=== PATIENT | female | born 1990 | race Caucasian/White ===

== ENCOUNTER 2016-10-19 08:33 | Emergency (ER) | payer OTHER ==
[~2016-10-19] VITALS: Ht 170.2 cm; Wt 66.4 kg
[~2016-10-19 08:33] MED LIST: MTR600X PO; PRENTAB26 PO
[2016-10-19 08:39] VITALS: TEMP 36.8; Ht 170.2 cm; Wt 66.4 kg
[2016-10-19] MEDS ORDERED: SODIUM CHLORIDE 0.9% 1000ML 1,000 ML IV STA (09:45)
[2016-10-19] MEDS ORDERED: MoRPHine SULFATE 4 MG/ML 1 ML CARP\\VIAL IV STA ×2 (09:45→10:31)
[2016-10-19] MEDS ORDERED: ONDANSETRON INJ 2 MG/ML 2 ML VIAL IV STA ×2 (09:45→10:31)
[2016-10-19 09:53] LABS: BASO % 0.1 %; BASO ABS # 0.01 K/uL (0-0.2); COMPLETE YES; EOS % 0.2 %; HEMATOCRIT 39.6 % (37-47); IG% 0.2 %; LYMPH % 12.7 %; LYMPH ABS # 1.11 K/uL (1.2-3.4); MEAN CELL VOLUME 88.4 fL (80-100); MEAN CORPUSCULAR HEMOGLOBIN 30.4 pg (25-34); MEAN CORPUSCULAR HGB CONC 34.3 g/dl (32-36); MONO % 2.1 %; NEUT % 84.7 %; PLATELET COUNT 191 K/uL (130-400); RED BLOOD COUNT 4.48 M/uL (4.2-5.4); WHITE BLOOD COUNT 8.76 K/uL (4.8-10.8)
[2016-10-19 10:09] LABS: BUN/CREATININE RATIO 29.1 (10-20); CALCIUM 9.4 mg/dl (8.5-10.1); CREATININE 0.75 mg/dl (0.60-1.20); POTASSIUM 3.4 mmol/L (3.5-5.1)
[2016-10-19 10:29] LABS: URINE APPEARANCE CLOUDY (CLEAR); URINE BILIRUBIN NEG (NEG); URINE COLOR YELLOW; URINE EPITHELIAL CELL AUTO >30 /lpf (0-5); URINE NITRITE NEG (NEG); URINE SPECIFIC GRAVITY 1.033 (1.000-1.030); UROBILINOGEN NEG (NEG)
[2016-10-19 10:34] LABS: MANUAL MICROSCOPIC REQUIRED? NO; REVIEW REQ? YES
[2016-10-19] MEDS ORDERED: HYDROmorphone INJ 1 MG/ML SYR IV STA (11:13)
--- NOTE | 2016-10-19 11:26 | DIAGNOSTIC IMAGING REPORT ---
BILIARY ULTRASOUND CLINICAL HISTORY: Right upper quadrant abdominal pain COMPARISON STUDY: 11/11/2015 FINDINGS: The pancreas appears sonographically normal. The liver appears sonographically normal. The gallbladder appears sonographically normal. There is no ductal dilatation. The common bile duct measures 3 mm. There is no right-sided hydronephrosis. IMPRESSION: Normal study Electronically signed by: Lukasz Kaplan M.D. 10/19/2016 11:25 AM Dictated Date/Time: 10/19/2016 11:21 AM
[2016-10-19] MEDS ORDERED: OPTIRAY 320 IV PRN (12:15)
--- NOTE | 2016-10-19 12:30 | DIAGNOSTIC IMAGING REPORT ---
CT ABD/PELVIS IV CONTRAST ONLY CLINICAL HISTORY: Nausea, vomiting, right upper quadrant abdominal pain COMPARISON STUDY: 08/06/2013 TECHNIQUE: Following the IV administration of 118 mL of Optiray-320, CT scan of the abdomen and pelvis was performed from the lung bases to the proximal femurs. Images are reviewed in the axial, sagittal, and coronal planes. IV contrast was administered without complication. CT DOSE: 326.11 mGy.cm FINDINGS: Lower chest: The heart is normal in size and configuration, without pericardial effusion. The lung bases and pleural spaces are clear. Liver: The contrast-enhanced liver is normal in size, contour, and attenuation. There is no intrahepatic biliary ductal dilatation. The hepatic veins and portal veins are patent. Gallbladder: Unremarkable. Spleen: Normal in size and attenuation. Pancreas: Unremarkable. Adrenal glands: Unremarkable. Kidneys: There is symmetric renal cortical enhancement. The kidneys are normal in size without hydronephrosis. Bowel: There are no transition zones indicate bowel obstruction. There is no acute diverticulitis. There is no evidence of acute appendicitis. Evaluation the colon is limited due to lack of distention. Peritoneum: There is no free air. There is minimal free pelvic fluid likely physiologic. Vasculature: The abdominal aorta is normal in course and caliber. Adenopathy: None. Pelvic viscera: The bladder, and pelvic viscera are unremarkable. Skeletal structures: No destructive osseous lesions are seen. IMPRESSION: 1. No acute findings 2. No evidence of bowel obstruction. No evidence of free air 3. No evidence of acute diverticulitis. No evidence of acute appendicitis. 4. Minimal free pelvic fluid likely physiologic Electronically signed by: Lukasz Kaplan M.D. 10/19/2016 12:28 PM Dictated Date/Time: 10/19/2016 12:24 PM
[2016-10-19] MEDS ORDERED: METOCLOPRAMIDE HCL INJ 5 MG/ML 2 ML VIAL IV STA (13:01)
[2016-10-19] MEDS ORDERED: HYDROmorphone INJ 0.5 MG/0.5 ML SYR IV STA (13:10)
[2016-10-19] MEDS ORDERED: PROM1SUP19 PR (14:39)
[2016-10-19 14:58] VITALS: BP 113/56; PULSE 69; O2SAT 99
--- NOTE | 2016-10-20 20:05 | EMERGENCY ROOM VISIT NOTE ---
ED Visit Note First contact with patient: 09:20 Chief Complaint: Nausea, vomiting and abdominal pain. History of Present Illness: Ms. Perkins is a 26 year-old white female who ambulates into the ED complaining of acute onset of with nausea and vomiting right upper quadrant abdominal pain. Historically patient reports history of severe nausea and vomiting during . Additionally she reports that she has had these similar symptoms during and outside of . She reports assessed multiple times but no cause has been identified. Patient reports a acute onset of severe nausea and vomiting that started approximately 14 hours ago and has been constant since its onset. Approximately 2 hours after the onset of her nausea and vomiting she developed right upper quadrant pain and since its onset it has been constant but has waxed and waned in intensity. She describes her vomitus as bilious and has not seen any blood in her vomit or coffee-ground like emesis. She has used some leftover Zofran from her without relief of her nausea or vomiting. Her nausea and vomiting when worsen if she attempted a eat or drink; she does report she attempted to swallow medicines but was unsuccessful and had an episode of vomiting. She describes her right upper quadrant pain as a stabbing sensation. She rates her discomfort 8/10. Her pain is nonradiating. Her pain worsens with vomiting. She has not identified any alleviating factors related to the discomfort. Previously noted she had attempted to take [id number] medications but was unsuccessful because of her nausea vomiting. Associated with her symptoms she reports she has been having chills but no mauro fevers. Patient denies sweats, skin eruptions, skin color changes, upper respiratory tract symptoms, shortness of breath, chest pain, diarrhea, constipation, rectal bleeding, black/tarry stools, urinary symptoms, hematuria, vaginal bleeding, vaginal discharge, back/flank pain. Review of Systems: As noted above in history of present illness. All body systems were reviewed and found to be negative as noted above. Past Medical History: Unspecified neck surgery. Current Medications: Patient denies. Allergies to Medications: Patient denies. Social History: Patient is not currently employed; she feels safe in her home environment; she denies tobacco and alcohol use. Physical Examination: Vital Signs: Date Time Temp Pulse Resp B/P Pulse Ox O2 Delivery O2 Flow Rate FiO2 10/19/16 14:58 69 14 113/56 99 10/19/16 13:35 55 13 138/75 96 Room Air 10/19/16 13:10 47 10/19/16 12:34 64 15 128/59 98 Room Air 10/19/16 11:28 57 12 137/77 98 Room Air 10/19/16 11:14 59 10/19/16 10:44 63 20 127/82 100 Room Air 10/19/16 08:39 36.8 68 20 156/78 95 Room Air GENERAL: 26-year-old female in moderate distress due to symptoms, nontoxic- appearing, afebrile and hemodynamically stable. NEUROLOGICAL: Awake, alert and oriented to person, place and time. Answering questions appropriately and following commands. Normal gait. Good hand eye coordination. SKIN: Warm, dry and pink. No soft tissue eruptions or trauma noted. HEENT: Atraumatic and normocephalic. PERRLA. Sclera white and conjunctiva pink. Oral cavity moist and pink. Pharynx is nonerythematous or edematous. Speech normal. No lymphadenopathy. Trachea midline. No jugular venous distention. BACK: No tenderness over the bony spine. No CVA tenderness. THORAX: Lungs sounds are clear to auscultation and equal bilaterally with symmetrical chest wall. No wheezing, rales or rhonchi. No crepitus, tenderness , subcutaneous air or deformities noted. HEART: Regular rate and rhythm. No gallops, rubs or murmurs are appreciated. ABDOMEN: Flat and soft with ejll-he-bytseurm tenderness in the right upper quadrant. Positive bowel sounds in all quadrants. No guarding, rigidity or organomegaly. EXTREMITIES: Moves all extremities well on command and with purpose. All distal neurovascular statuses are intact and equal bilaterally. ED Course: Patient is assessed as noted above. Laboratory Testing: Test 10/19/16 08:50 10/19/16 08:55 Range/Units White Blood Count 8.76 4.8-10.8 K/uL Red Blood Count 4.48 4.2-5.4 M/uL Hemoglobin 13.6 12.0-16.0 g/dL Hematocrit 39.6 37-47 % Mean Corpuscular Volume 88.4 80-100 fL Mean Corpuscular Hemoglobin 30.4 25-34 pg Mean Corpuscular Hemoglobin Concent 34.3 32-36 g/dl Platelet Count 191 130-400 K/uL Mean Platelet Volume 10.0 7.4-10.4 fL Neutrophils (%) (Auto) 84.7 % Lymphocytes (%) (Auto) 12.7 % Monocytes (%) (Auto) 2.1 % Eosinophils (%) (Auto) 0.2 % Basophils (%) (Auto) 0.1 % Neutrophils # (Auto) 7.42 1.4-6.5 K/uL Lymphocytes # (Auto) 1.11 1.2-3.4 K/uL Monocytes # (Auto) 0.18 0.11-0.59 K/uL Eosinophils # (Auto) 0.02 0-0.5 K/uL Basophils # (Auto) 0.01 0-0.2 K/uL RDW Standard Deviation 43.3 36.4-46.3 fL RDW Coefficient of Variation 13.3 11.5-14.5 % Immature Granulocyte % (Auto) 0.2 % Immature Granulocyte # (Auto) 0.02 0.00-0.02 K/uL Sodium Level 141 136-145 mmol/L Potassium Level 3.4 3.5-5.1 mmol/L Chloride Level 105 98-107 mmol/L Carbon Dioxide Level 21 21-32 mmol/L Anion Gap 15.0 3-11 mmol/L Blood Urea Nitrogen 22 7-18 mg/dl Creatinine 0.75 0.60-1.20 mg/dl Est Creatinine Clear Calc Drug Dose 112.5 ml/min Estimated GFR () 129.3 Estimated GFR (Non- 111.6 BUN/Creatinine Ratio 29.1 10-20 Random Glucose 83 70-99 mg/dl Calcium Level 9.4 8.5-10.1 mg/dl Total Bilirubin 0.5 0.2-1 mg/dl Direct Bilirubin 0.2 0-0.2 mg/dl Aspartate Amino Transf (AST/SGOT) 23 15-37 U/L Alanine Aminotransferase (ALT/SGPT) 22 12-78 U/L Alkaline Phosphatase 66 45-117 U/L Total Protein 8.3 6.4-8.2 gm/dl Albumin 4.7 3.4-5.0 gm/dl Lipase 76 73-393 U/L Chemistry Specimen Hemolysis Urine Color YELLOW Urine Appearance CLOUDY CLEAR Urine pH 5.0 4.5-7.5 Urine Specific [place] 1.033 1.000-1.030 Urine Protein 1+ NEG Urine Glucose (UA) NEG NEG Urine Ketones 2+ NEG Urine Occult Blood NEG NEG Urine Nitrite NEG NEG Urine Bilirubin NEG NEG Urine Urobilinogen NEG NEG Urine Leukocyte Esterase TRACE NEG Urine WBC (Auto) 5-10 0-5 /hpf Urine RBC (Auto) 0-4 0-4 /hpf Urine Hyaline Casts (Auto) 0-5 /lpf Urine Epithelial Cells (Auto) >30 0-5 /lpf Urine Bacteria (Auto) 2+ NEG Urine Renal Epithelial Cells 0-5 /lpf Urine Pathogenic Casts 0 /lpf Gallbladder Ultrasound: Was reviewed by myself and read by the radiologist and shows a normal-appearing pancreas, normal-appearing liver, normal appearing gallbladder with no ductal dilatation or gallbladder wall thickening and normal- appearing with no hydronephrosis. IV Contrast Abdominal/Pelvic CT: Was reviewed by myself and read by the radiologist showing no acute findings, no evidence of bowel obstruction, free air, acute diverticulitis, acute appendicitis and minimal free pelvic fluid. Patient was hydrated with 2 L of normal saline she received a total of 8 mg of morphine IV and 1.5 mg of the Dilaudid IV for pain and 8 mg of Zofran IV and 10 mg of Reglan IV for nausea/vomiting. Patient was reassessed multiple times during her stay in the emergency department. Patient's case was reviewed with Dr. Matos; we agreed on diagnostic approach, treatment, disposition and plan. I did trial the patient on Gatorade and saltines; she did tolerate this but then just prior to discharge she became more nauseated and started vomiting. I reviewed the case with case management and she didn't meet qualifications for observation stay; I did talk to her about this but she wanted to review this with her . After a long period of time she was able to contact her at home and she elected to go and treat her symptoms there. Patient was educated about dejahight's findings and instructed on her treatment plan; she verbalizes understanding and agreement with this plan. Clinical Impression: Nausea and vomiting. Right upper quadrant abdominal pain. Decision-Making: Initially my differential diagnosis I considered gastritis, pancreatitis, hepatitis, , pyelonephritis, kidney stone, bowel obstruction and other causes. Disposition: Patient discharged home in stable condition accompanied by her mother; prior to departure she was reassessed and rated her abdominal discomfort 4/10 and reported currently her nausea was under control and she had not vomited for the last 30 minutes. Plan: Patient was prescribed Phenergan suppositories and instructed on their use. Patient was encouraged to avoid stomach irritants and a bland diet for 48 hours. Patient was encouraged to use 650 mg of acetaminophen every 6 hours for pain. Patient was encouraged to follow-up with her primary care provider for recheck and possible referral to gastroenterology. Patient was encouraged return the ED for worsening/uncontrolled vomiting, bloody vomitus, uncontrolled pain, fevers or any new/concerning symptoms.
== END 2016-10-19 15:00 | disposition home or self-care (01) ==
LOC: C.EDB 08:37
DX: R11.2 Nausea with vomiting, unspecified (principal); R10.11 Right upper quadrant pain; Z98.890 Other specified postprocedural states

== ENCOUNTER 2016-10-21 08:02 | Emergency (ER) | payer OTHER ==
[~2016-10-21] VITALS: Ht 170.2 cm; Wt 68.9 kg
[~2016-10-21 08:02] MED LIST changes: -MTR600X PO; -PRENTAB26 PO; +PROM1SUP19 PR
[2016-10-21 08:05] VITALS: TEMP 36.2; Ht 170.2 cm; Wt 68.9 kg
[2016-10-21] MEDS ORDERED: SODIUM CHLORIDE 0.9% 1000ML 1,000 ML IV STA (08:22)
[2016-10-21] MEDS ORDERED: MoRPHine SULFATE 4 MG/ML 1 ML CARP\\VIAL IV STA (08:22)
[2016-10-21] MEDS ORDERED: METOCLOPRAMIDE HCL INJ 5 MG/ML 2 ML VIAL IV STA (08:22)
[2016-10-21 08:35] LABS: BASO % 0.2 %; BASO ABS # 0.02 K/uL (0-0.2); COMPLETE YES; EOS % 0.1 %; IG% 0.2 %; LYMPH % 14.4 %; LYMPH ABS # 1.24 K/uL (1.2-3.4); MEAN CELL VOLUME 87.6 fL (80-100); MEAN CORPUSCULAR HEMOGLOBIN 30.1 pg (25-34); MEAN CORPUSCULAR HGB CONC 34.4 g/dl (32-36); MEAN PLATELET VOLUME 10.1 fL (7.4-10.4); MONO % 3.4 %; NEUT % 81.7 %; PLATELET COUNT 190 K/uL (130-400); RED BLOOD COUNT 4.68 M/uL (4.2-5.4)
[2016-10-21 08:52] LABS: ALB/GLOB RATIO 1.3 (0.9-2); BUN/CREATININE RATIO 9.8 (10-20); CREATININE 1.2 mg/dl (0.60-1.20); POTASSIUM 3.1 mmol/L (3.5-5.1)
[2016-10-21] MEDS ORDERED: PROMETHAZINE HCL INJ 25 MG in SODIUM CHLORIDE 0.9% 50ML 50 ML IV STA (09:04)
[2016-10-21] MEDS ORDERED: MoRPHine SULFATE 2 MG/ML CARP IV STA (09:04)
[2016-10-21] MEDS ORDERED: PROMETHAZINE HCL INJ 25 MG/ML 1 ML VIAL ONE (09:12)
[2016-10-21 09:39] LABS: PREG INTERNAL NEGATIVE QC NEG CLEAR BACKGROUND; PREG INTERNAL POSITIVE QC POS CONTROL LINE
[2016-10-21 09:44] LABS: URINE APPEARANCE CLEAR (CLEAR); URINE BILIRUBIN NEG (NEG); URINE COLOR YELLOW; URINE NITRITE NEG (NEG); URINE PH 7.5 (4.5-7.5); URINE SPECIFIC GRAVITY 1.024 (1.000-1.030); UROBILINOGEN NEG (NEG)
[2016-10-21] MEDS ORDERED: KETOROLAC TROMETHAMINE 30 MG/ML VIAL IV STA (09:51)
[2016-10-21 09:58] LABS: MANUAL MICROSCOPIC REQUIRED? YES; REVIEW REQ? NO
[2016-10-21 10:09] LABS: URINE RBC 0-4 /hpf (0-4)
[2016-10-21 10:10] LABS: URINE BACTERIA NEG (NEG); URINE MUCUS PRESENT (NONE PRSENT)
[2016-10-21] MEDS ORDERED: DICYCLOMINE HCL 10 MG CAP PO ONE (10:45)
[2016-10-21] MEDS ORDERED: LORAZEPAM 2 MG/ML 1 ML VIAL IV STA (12:02)
[2016-10-21 12:25] VITALS: BP 131/79; PULSE 68; O2SAT 99
--- NOTE | 2016-10-23 18:54 | EMERGENCY ROOM VISIT NOTE ---
History First contact with patient: 08:13 Chief Complaint: ABDOMINAL PAIN Stated Complaint: N,V, SEVERE ABD. PAIN History of Present Illness The patient is a 26 year old white female who presents to the Emergency Room with complaints of severe upper quadrant abdominal pain that developed around 1 AM today. She has had persisting nausea and vomiting. She presents with bile emesis in a bag. She was just seen here about 36 hours ago for identical symptoms. She had CT scan imaging of her abdomen and pelvis and ultrasound imaging of her gallbladder that were both normal. Morphine, Dilaudid, Reglan, and Zofran and her symptoms subsided. She states Sunday she had a good day with no significant pain, nausea, or vomiting. Symptoms recurred today. She states she only ate cheese puffs yesterday. She currently complains of being thirsty but unable to retain any fluid. No diarrhea. No other cold symptoms. She has a long-standing history of abdominal pain, nausea, and vomiting complaints and has been seen here numerous times over the past several years. She states she had an EGD several years ago that was reportedly normal. She states she has not had an evaluation of her gallbladder emptying that she is aware of. No abdominal trauma. Her mother accompanies her today. Patient also states that the only thing that really helps is for her to rock back and forth and to go to sleep. She states often when she awakes, the pain has gone. She states pain medications only temporary relief her discomfort. She has used a multitude of different pain medications and Ativan in the past, with no rhyme or reason as to what works for each particular episode. Review of Systems REVIEW OF SYSTEM: HEENT: No dizziness, visual problems, hearing loss, or tinnitus. There is no difficulty swallowing and no oral lesions are present. LYMPH: No adenopathy. PULMONARY: No cough, shortness of breath, sputum production or hemoptysis. CARDIOVASCULAR: No chest pain, palpitations, shortness of breath or peripheral edema. GASTROINTESTINAL: No diarrhea, or constipation. Frequent nausea, vomiting, and abdominal pain. GENITOURINARY: No dysuria, frequency, urgency or nocturia. NEUROLOGIC: No weakness, muscle tenderness, epilepsy or history of neurological problems. MUSCULOSKELETAL: No history of joint tenderness/swelling. No history of arthritis or arthralgias. SKIN: No rashes or lesions. PSYCHIATRIC: No history of depression or mental illness. ENDOCRINE: No history of diabetes, thyroid disorders, or abnormal hair growth. Past Medical/Surgical History Medical Problems: (1) Abdominal pain affecting (2) Chronic abdominal pain (3) Depression (4) spinal surgery (5) Spinal surgery (6) Vaginal bleeding (7) Vaginal delivery Family History FH: cancer Hypertension Kidney disease or stones Social History Smoking Status: Never Smoker Smokeless Tobacco Use: No Alcohol Use: none Drug Use: none Marital Status: Housing Status: lives with family Occupation Status: unemployed Current/Historical Medications Scheduled PRN Promethazine (Phenergan Suppository), 25 MG AR Q6 PRN for Nausea or Vomiting Allergies Coded Allergies: No Known Allergies (Unverified , 10/21/16) Physical Exam Vital Signs Date Time Temp Pulse Resp B/P Pulse Ox O2 Delivery O2 Flow Rate FiO2 10/21/16 12:25 68 16 131/79 99 Room Air 10/21/16 10:10 70 16 132/86 100 Room Air 10/21/16 08:05 36.2 68 20 147/94 97 Room Air Physical Exam Gen.: Well-developed, well-nourished, young white female, in obvious discomfort. She is moaning and rolling around on the bed. Alert and oriented. Skin:Warm and dry with good turgor. No rashes or lesions. No ecchymosis or erythema. The patient is not diaphoretic. No abrasions. HEENT: Normocephalic atraumatic. Eyes PERRLA, EOMI. No conjunctiva or scleral injection. Nares patent bilaterally without turbinate enlargement. No significant drainage. No epistaxis. Oropharynx without erythema or exudate. Uvula midline, oral mucosa moist. No lesions present. Heart: Heart RRR. No MGR. Peripheral pulses are 2+. Lungs: Lungs are clear to auscultation. No crackles rhonchi or wheezing. Good air movement. The patient is able to take a deep breath. Abdomen: Abdomen was inspected, auscultated, and palpated. Bowel sounds present x 4. Soft, diffuse tenderness to palpation in the upper quadrants. She also has suprapubic discomfort today. No hepato-splenomegaly. No masses noted. No rebound. No pain over McBurney's point. No CVA tenderness. Musculoskeletal: Gross motor function of the upper and lower extremities is intact and unremarkable. Neurologic: Gross sensation is intact across the upper and lower extremities by soft touch. Medical Decision & Procedures Laboratory Results 10/21/16 08:20 Red Blood Count 4.68, Mean Corpuscular Volume 87.6, Mean Corpuscular Hemoglobin 30.1, Mean Corpuscular Hemoglobin Concent 34.4, Mean Platelet Volume 10.1, Neutrophils (%) (Auto) 81.7, Lymphocytes (%) (Auto) 14.4, Monocytes (%) (Auto) 3.4, Eosinophils (%) (Auto) 0.1, Basophils (%) (Auto) 0.2, Neutrophils # (Auto) 7.02, Lymphocytes # (Auto) 1.24, Monocytes # (Auto) 0.29, Eosinophils # (Auto) 0.01, Basophils # (Auto) 0.02 10/21/16 08:20 Test 10/21/16 08:20 10/21/16 09:25 White Blood Count 8.60 K/uL (4.8-10.8) Red Blood Count 4.68 M/uL (4.2-5.4) Hemoglobin 14.1 g/dL (12.0-16.0) Hematocrit 41.0 % (37-47) Mean Corpuscular Volume 87.6 fL (80-100) Mean Corpuscular Hemoglobin 30.1 pg (25-34) Mean Corpuscular Hemoglobin Concent 34.4 g/dl (32-36) Platelet Count 190 K/uL (130-400) Mean Platelet Volume 10.1 fL (7.4-10.4) Neutrophils (%) (Auto) 81.7 % Lymphocytes (%) (Auto) 14.4 % Monocytes (%) (Auto) 3.4 % Eosinophils (%) (Auto) 0.1 % Basophils (%) (Auto) 0.2 % Neutrophils # (Auto) 7.02 K/uL (1.4-6.5) Lymphocytes # (Auto) 1.24 K/uL (1.2-3.4) Monocytes # (Auto) 0.29 K/uL (0.11-0.59) Eosinophils # (Auto) 0.01 K/uL (0-0.5) Basophils # (Auto) 0.02 K/uL (0-0.2) RDW Standard Deviation 43.4 fL (36.4-46.3) RDW Coefficient of Variation 13.5 % (11.5-14.5) Immature Granulocyte % (Auto) 0.2 % Immature Granulocyte # (Auto) 0.02 K/uL (0.00-0.02) Anion Gap 11.0 mmol/L (3-11) Est Creatinine Clear Calc Drug Dose 70.3 ml/min Estimated GFR () 73.3 Estimated GFR (Non- 63.2 BUN/Creatinine Ratio 9.8 (10-20) Calcium Level 9.0 mg/dl (8.5-10.1) Total Bilirubin 0.5 mg/dl (0.2-1) Aspartate Amino Transf (AST/SGOT) 24 U/L (15-37) Alanine Aminotransferase (ALT/SGPT) 28 U/L (12-78) Alkaline Phosphatase 63 U/L (45-117) Total Protein 8.2 gm/dl (6.4-8.2) Albumin 4.7 gm/dl (3.4-5.0) Globulin 3.5 gm/dl (2.5-4.0) Albumin/Globulin Ratio 1.3 (0.9-2) Amylase Level 40 U/L (25-115) Lipase 116 U/L (73-393) Urine Color YELLOW Urine Appearance CLEAR (CLEAR) Urine pH 7.5 (4.5-7.5) Urine Specific [place] 1.024 (1.000-1.030) Urine Protein NEG (NEG) Urine Glucose (UA) NEG (NEG) Urine Ketones NEG (NEG) Urine Occult Blood NEG (NEG) Urine Nitrite NEG (NEG) Urine Bilirubin NEG (NEG) Urine Urobilinogen NEG (NEG) Urine Leukocyte Esterase TRACE (NEG) Urine WBC (Auto) /hpf (0-5) Urine RBC (Auto) /hpf (0-4) Urine Hyaline Casts (Auto) /lpf (0-5) Urine Epithelial Cells (Auto) /lpf (0-5) Urine Bacteria (Auto) (NEG) Urine RBC 0-4 /hpf (0-4) Urine WBC 1-5 /hpf (0-5) Urine Epithelial Cells >30 /lpf (0-5) Urine Bacteria NEG (NEG) Urine Mucus PRESENT (NONE PRSENT) Urine Test NEG (NEG) CBC, UA, amylase, lipase, and chem panel are all essentially unremarkable. Mildly low potassium at 3.1. Urine is negative. Medications Administered Medications (Trade) Dose Ordered Sig/Oli Route Start Time Stop Time Status Last Admin Dose Admin Sodium Chloride (Nss 1000ml) 1,000 ml @ 999 mls/hr Q1H1M STAT IV 10/21/16 08:22 10/21/16 09:22 DC 10/21/16 08:34 999 MLS/HR Metoclopramide HCl (Reglan Inj) 10 mg NOW STAT IV 10/21/16 08:22 10/21/16 08:24 DC 10/21/16 08:34 10 MG Morphine Sulfate (MoRPHine SULFATE INJ) 4 mg NOW STAT IV 10/21/16 08:22 10/21/16 08:24 DC 10/21/16 08:35 4 MG Morphine Sulfate 2 mg 2 mg NOW STAT IV 10/21/16 09:04 10/21/16 09:06 DC 10/21/16 09:20 2 MG Promethazine HCl/ Sodium Chloride (Phenergan Inj/ Nss 50ml) 51 ml @ 204 mls/hr NOW STAT IV 10/21/16 09:04 10/21/16 09:18 DC 10/21/16 09:20 204 MLS/HR Ketorolac Tromethamine (Toradol Inj) 30 mg NOW STAT IV 10/21/16 09:51 10/21/16 09:52 DC 10/21/16 10:09 30 MG Dicyclomine HCl (Bentyl Cap) 10 mg NOW ONCE PO 10/21/16 10:45 10/21/16 10:46 DC 10/21/16 11:06 10 MG Lorazepam (Ativan Inj) 0.5 mg NOW STAT IV 10/21/16 12:02 10/21/16 12:03 DC 10/21/16 12:11 0.5 MG Reglan 10 mg IV, 1 L normal sterile saline IV bolus, Morphine 4 mg IV, morphine 2 mg IV, Phenergan 25 mg IV, Toradol 31 g IV, Bentyl 10 mg by mouth, lorazepam 0.5 mg IV ED Course Patient was educated regarding today's findings. Conservative care measures were discussed. IV was established. Labs were obtained. Patient was given 1 L normal sterile saline IV bolus, morphine, Reglan, Zofran, Phenergan, and Ativan IV. She was given Bentyl 10 mg orally. The morphine temporarily improved her discomfort but then recurred within 20 minutes. Her nausea and vomiting resolved. I did give her 0.5mg of Ativan IV which allowed her to sleep. When she awoke, her pain was much improved. She has recently had numerous imaging studies which were all normal. She still has her gallbladder. I would like her to follow-up with [facility] gastroenterology to discuss further imaging including possible MRCP. Return to the ED for any acute changes. She has Phenergan suppositories at home and will use this for any continued nausea or vomiting. Maintain hydration. Because of her current medications, she should not breast feed for the next 24 hours. She can use simethicone to reduce any abdominal pressure or bloating. She may also use Benadryl 25 mg every 6 hours as needed for any inability to sleep. Medical Decision Possibility of appendicitis, acute cholecystitis, bowel obstruction, gastroenteritis, perforation, diverticulitis, , tubal , colitis, and pancreatitis were considered, among others Impression Primary Impression: Chronic abdominal pain Additional Impression: Vomiting Departure Information Referrals No Doctor, Assigned (PCP) Patient Instructions My [facility] Health Problem Qualifiers Additional Impression: Vomiting Vomiting type: bilious vomiting Nausea presence: with nausea Qualified Codes: R11.14 - Bilious vomiting
== END 2016-10-21 14:30 | disposition home or self-care (01) ==
LOC: C.EDB 08:02
DX: R10.10 Upper abdominal pain, unspecified (principal); R11.14 Bilious vomiting

== ENCOUNTER 2016-10-24 08:49 | Emergency (ER) | payer OTHER ==
[~2016-10-24] VITALS: Ht 170.2 cm; Wt 67.9 kg
[2016-10-24 08:52] VITALS: Ht 170.2 cm; Wt 67.9 kg
[2016-10-24] MEDS ORDERED: ONDANSETRON INJ 2 MG/ML 2 ML VIAL IV STA (08:57)
[2016-10-24] MEDS ORDERED: SODIUM CHLORIDE 0.9% 1000ML 1,000 ML IV SCH (09:00)
[2016-10-24] MEDS ORDERED: DICYCLOMINE HCL 10 MG/ML 2 ML AMP IM ONE (09:00)
--- NOTE | 2016-10-24 09:09 | EMERGENCY ROOM VISIT NOTE ---
History Report prepared by Tao: Yamel Ibrahim Under the Supervision of: Dr. Christiano Webber D.O. First contact with patient: 08:57 Chief Complaint: ABDOMINAL PAIN Stated Complaint: ABD PAIN Nursing Triage Summary: has abdominal pain nausea and vomiting. had appointment this morning at 0930 to see gastroenterology. I came here instead. was just at the er for same symptoms History of Present Illness The patient is a 26 year old female who presents to the Emergency Room with complaints of constant abdominal pain beginning yesterday. The patient states that she was recently seen in the ED 2 times and had an appointment to follow up with gastroenterology this morning but decided to come here. She complains of pain with breathing, nausea, and vomiting. She denies any history of STDs. The patient notes that she is on a gas pill and has been taking Benadryl to sleep. She states that she had an ultrasound the last time that she was here. Source of History: patient Onset: yesterday Position: abdomen Timing: constant Associated Symptoms: + nausea, + vomiting Note: Pt complains of pain with breathing. Review of Systems See above for pertinent positives & negatives. A total of 10 systems reviewed and were otherwise negative. Past Medical & Surgical Medical Problems: (1) Abdominal pain affecting (2) Chronic abdominal pain (3) Depression (4) spinal surgery (5) Spinal surgery (6) Vaginal bleeding (7) Vaginal delivery Family History FH: cancer Hypertension Kidney disease or stones Social History Smoking Status: Never Smoker Alcohol Use: none Drug Use: none Marital Status: Housing Status: lives with family Occupation Status: unemployed Current/Historical Medications Scheduled Dicyclomine Hcl (Bentyl), 1 TAB PO QID Doxycycline Hyclate (Doxycycline Hyclate), 1 TAB PO BID Metronidazole (Flagyl), 500 MG PO TID Scheduled PRN Promethazine (Phenergan Suppository), 25 MG NM Q6 PRN for Nausea or Vomiting Allergies Coded Allergies: No Known Allergies (Unverified , 10/24/16) Physical Exam Vital Signs Date Time Temp Pulse Resp B/P Pulse Ox O2 Delivery O2 Flow Rate FiO2 10/24/16 11:07 71 18 145/91 98 Room Air 10/24/16 08:52 37.6 90 18 149/92 98 Room Air Physical Exam GENERAL: Patient is sitting with her knees pulled up to her chest, in pain. HEENT: No acute trauma, normocephalic atraumatic, mucous membranes moist, no nasal congestion, no scleral icterus. NECK: No stridor, no adenopathy, no meningismus, trachea is midline. LUNGS: No dyspnea. Clear to auscultation and equal bilaterally. No wheeze, no rhonchi. HEART: Regular rate and rhythm. No murmurs, rubs, gallops appreciated. ABDOMEN: Diffuse abdominal tenderness, no hepatosplenomegaly, no guarding or rebound. BACK: No midline tenderness, no CVA tenderness EXTREMITIES: Normal motion all extremities, no cyanosis, no edema. NEUROLOGIC: Alert and oriented, no acute motor or sensory deficits, no focal weakness, cranial nerves grossly intact. SKIN: No rash, no jaundice, no diaphoresis. PELVIC: Normal external genitalia, fullness in the right adnexa, moderate pain on bimanual examination. Cultures were sent. Medical Decision & Procedures ER Provider Diagnostic Interpretation: US results and stated below per my review and radiologist interpretation: ULTRASOUND OF THE PELVIS FINDINGS: Uterus: The retroflexed uterus is normal in size and echotexture, measuring 6.4 x 3.7 x 4.9 cm. Endometrium: The endometrium is normal in appearance, and the endometrial stripe is normal in thickness measuring up to 0.3 cm. Ovaries: The ovaries are normal in size and morphology. The right ovary measures 4.5 x 2.0 x 3.1 cm and the left ovary measures 4.2 x 3.0 x 2.6 cm. Bilateral ovarian follicles are noted. Normal Doppler waveforms are shown within both ovaries. Pelvis: There is a small volume of free fluid in the cul-de-sac. No concerning adnexal lesion is seen. IMPRESSION: 1. No acute sonographic abnormality is identified in the pelvis. 2. There is a small volume of free fluid in the cul-de-sac, likely within physiologic limits. Electronically signed by: Benjamin Staples M.D. 10/24/2016 10:59 AM Dictated Date/Time: 10/24/2016 10:58 AM ULTRASOUND OF THE PELVIS FINDINGS: Uterus: The retroflexed uterus is normal in size and echotexture, measuring 6.4 x 3.7 x 4.9 cm. Endometrium: The endometrium is normal in appearance, and the endometrial stripe is normal in thickness measuring up to 0.3 cm. Ovaries: The ovaries are normal in size and morphology. The right ovary measures 4.5 x 2.0 x 3.1 cm and the left ovary measures 4.2 x 3.0 x 2.6 cm. Bilateral ovarian follicles are noted. Normal Doppler waveforms are shown within both ovaries. Pelvis: There is a small volume of free fluid in the cul-de-sac. No concerning adnexal lesion is seen. IMPRESSION: 1. No acute sonographic abnormality is identified in the pelvis. 2. There is a small volume of free fluid in the cul-de-sac, likely within physiologic limits. Electronically signed by: Benjamin Staples M.D. 10/24/2016 10:59 AM Dictated Date/Time: 10/24/2016 10:58 AM Laboratory Results 10/24/16 09:35 Red Blood Count 4.73, Mean Corpuscular Volume 85.4, Mean Corpuscular Hemoglobin 29.8, Mean Corpuscular Hemoglobin Concent 34.9, Mean Platelet Volume 10.0, Neutrophils (%) (Auto) 79.5, Lymphocytes (%) (Auto) 16.0, Monocytes (%) (Auto) 3.8, Eosinophils (%) (Auto) 0.2, Basophils (%) (Auto) 0.2, Neutrophils # (Auto) 7.20, Lymphocytes # (Auto) 1.45, Monocytes # (Auto) 0.34, Eosinophils # (Auto) 0.02, Basophils # (Auto) 0.02 10/24/16 09:35 Test 10/24/16 09:10 10/24/16 09:35 10/24/16 10:00 Urine Color YELLOW Urine Appearance TURBID (CLEAR) Urine pH 8.0 (4.5-7.5) Urine Specific [place] 1.018 (1.000-1.030) Urine Protein NEG (NEG) Urine Glucose (UA) NEG (NEG) Urine Ketones NEG (NEG) Urine Occult Blood NEG (NEG) Urine Nitrite NEG (NEG) Urine Bilirubin NEG (NEG) Urine Urobilinogen NEG (NEG) Urine Leukocyte Esterase TRACE (NEG) Urine WBC (Auto) 1-5 /hpf (0-5) Urine RBC (Auto) 0-4 /hpf (0-4) Urine Hyaline Casts (Auto) 1-5 /lpf (0-5) Urine Epithelial Cells (Auto) >30 /lpf (0-5) Urine Bacteria (Auto) NEG (NEG) Urine Test NEG (NEG) White Blood Count 9.06 K/uL (4.8-10.8) Red Blood Count 4.73 M/uL (4.2-5.4) Hemoglobin 14.1 g/dL (12.0-16.0) Hematocrit 40.4 % (37-47) Mean Corpuscular Volume 85.4 fL (80-100) Mean Corpuscular Hemoglobin 29.8 pg (25-34) Mean Corpuscular Hemoglobin Concent 34.9 g/dl (32-36) Platelet Count 216 K/uL (130-400) Mean Platelet Volume 10.0 fL (7.4-10.4) Neutrophils (%) (Auto) 79.5 % Lymphocytes (%) (Auto) 16.0 % Monocytes (%) (Auto) 3.8 % Eosinophils (%) (Auto) 0.2 % Basophils (%) (Auto) 0.2 % Neutrophils # (Auto) 7.20 K/uL (1.4-6.5) Lymphocytes # (Auto) 1.45 K/uL (1.2-3.4) Monocytes # (Auto) 0.34 K/uL (0.11-0.59) Eosinophils # (Auto) 0.02 K/uL (0-0.5) Basophils # (Auto) 0.02 K/uL (0-0.2) RDW Standard Deviation 41.0 fL (36.4-46.3) RDW Coefficient of Variation 13.2 % (11.5-14.5) Immature Granulocyte % (Auto) 0.3 % Immature Granulocyte # (Auto) 0.03 K/uL (0.00-0.02) Anion Gap 14.0 mmol/L (3-11) Est Creatinine Clear Calc Drug Dose 131.8 ml/min Estimated GFR () 144.8 Estimated GFR (Non- 124.9 BUN/Creatinine Ratio 17.7 (10-20) Calcium Level 9.1 mg/dl (8.5-10.1) Total Bilirubin 0.5 mg/dl (0.2-1) Direct Bilirubin 0.1 mg/dl (0-0.2) Aspartate Amino Transf (AST/SGOT) 19 U/L (15-37) Alanine Aminotransferase (ALT/SGPT) 31 U/L (12-78) Alkaline Phosphatase 61 U/L (45-117) Total Protein 7.7 gm/dl (6.4-8.2) Albumin 4.4 gm/dl (3.4-5.0) Lipase 80 U/L (73-393) Laboratory results as reviewed by me. Medications Administered Medications (Trade) Dose Ordered Sig/Oli Route Start Time Stop Time Status Last Admin Dose Admin Sodium Chloride (Nss 1000ml) 1,000 ml @ 999 mls/hr Q1H1M IV 10/24/16 09:00 11/23/16 08:59 10/24/16 09:43 999 MLS/HR Dicyclomine HCl (Bentyl Inj) 20 mg NOW ONCE IM 10/24/16 09:00 10/24/16 09:10 DC 10/24/16 09:44 20 MG Ondansetron HCl (Zofran Inj) 4 mg NOW STAT IV 10/24/16 08:57 10/24/16 09:10 DC 10/24/16 09:43 4 MG Oxycodone/ Acetaminophen (Percocet 5-325mg Tab) 2 tab NOW STAT PO 10/24/16 10:04 10/24/16 10:22 DC 10/24/16 10:18 2 TAB Potassium Chloride (Klor-Con M10) 40 meq NOW STAT PO 10/24/16 10:36 10/24/16 10:37 DC 10/24/16 11:05 40 MEQ Ceftriaxone Sodium (Rocephin Inj) 1 gm NOW STAT IV 10/24/16 11:29 10/24/16 11:30 DC 10/24/16 11:50 1 GM Ketorolac Tromethamine (Toradol Inj) 30 mg NOW STAT IV 10/24/16 11:39 10/24/16 11:40 DC 10/24/16 11:50 30 MG ED Course 0857: The patient was evaluated in room B6. A complete history and physical exam was performed. 0857: Zofran Inj 4mg IV. 0900: Bentyl Inj 20mg IM, Sodium Chloride 1000 ml @ 999 mls/hr IV. 0914: This is the patients third visit in the last 7 days to the ER. The patient did not go to her previously scheduled GI visit. 0917: I have reviewed the previous two visit notes. Recently had CT abd/pelvis and a gallbladder US that are unremarkable. 1004: Oxycodone/Acetaminophen 2 tab PO. 1036: Potassium Chloride 40meq PO. 1129: Rocephin Inj 1gm IV. 1139: Toradol Inj 30mg IV. 1142: I updated the patient. 1157: Reevaluated the patient. Discussed results and discharge instructions: She verbalized understanding and agreement. The patient is ready for discharge. Medical Decision Differential diagnosis: Etiologies such as appendicitis, diverticulitis, PUD, biliary pathology, UTI, pancreatitis, obstruction, mesenteric ischemia, aortic pathology, infections, inflammatory bowel disease, renal colic, as well as others were entertained. Patient is a 26-year-old female who presents with diffuse abdominal pain for the third time in the past 7 days. I've reviewed her previous records she received a CT scan and abdominal ultrasound which were both unremarkable. She had an appointment with GI at 9:30 today, when inquired as to why she decided to did not go to her GI appointment and presents to the emergency department she replied that she didn't think they were going to do anything today as this was her first appointment and didn't want to sit in the office for an hour in pain and decided to come to the emergency room for treatment of her pain. She is nauseous without vomiting, she is not having any vaginal bleeding or vaginal discharge, she is 5 months from her fourth child. It was an uncomplicated vaginal delivery. She is not taking anything for the pain at this time pain was marginally improved upon her ED presentations. Her mother is at her bedside and states that her abdominal pain has been chronic since she was a young child. It is acutely worse in the last 2 weeks. Patient states that it has been progressively worse since the delivery of her last child. Physical exam she is diffusely tender without guarding or rebound, no hepatosplenomegaly. Pelvic exam she had some mild right adnexal fullness and tenderness which she says is abnormal for a normal pelvic exam. Transvaginal ultrasound was unremarkable, cultures were sent for gonococcus Chlamydia and Trichomonas. There was no vaginal discharge during my examination. Patient has had an extensive workup in the emergency room this week. Remaining tests that may be entertained would be a HIDA scan as well as a gastric emptying evaluation both of which are not performed emergently in the emergency room. Again directed her to follow up with primary care provider. This abdominal pain constellation appears to be chronic in nature and current medical literature suggests that narcotics only worsen the outcomes. Accordingly have prescribed Bentyl, and will treat her for possible pelvic inflammatory disease with 2 weeks course of Flagyl and doxycycline in addition to Rocephin IV. I have advised her not to drink alcoholic beverages while consuming Flagyl. He' ll be discharged in a stable condition. Case management was able to secure appointment 3 days from now, 3:30 with Debby Lou at [facility]. [place] Drug Monitoring Program Search Results: patient reviewed within database Drug Monitoring Findings: No prescriptions since 2012. Scribe Attestation The scribe's documentation has been prepared under my direction and personally reviewed by me in its entirety. I confirm that the note above accurately reflects all work, treatment, procedures, and medical decision making performed by me. Departure Information Dispostion Home / Self-Care Prescriptions Metronidazole (FLAGYL) 500 Mg Tab 500 MG PO TID for 14 Days, #42 TAB Prov: Christiano Webber D.O. 10/24/16 Doxycycline Hyclate (DOXYCYCLINE HYCLATE) 100 Mg Tab 1 TAB PO BID for 10 Days, #20 TAB Prov: Christiano Webber D.O. 10/24/16 Dicyclomine Hcl (BENTYL) 20 Mg Tab 1 TAB PO QID for 30 Days, #120 TAB Prov: Christiano Webber D.O. 10/24/16 Referrals No Doctor, Assigned (PCP) Forms HOME CARE DOCUMENTATION FORM, IMPORTANT VISIT INFORMATION Patient Instructions Abdominal Pain - [facility], [facility] Additional Instructions Use the Bentyl up to 4 times a day for abdominal pain. Do not drink alcohol while taking Flagyl. Follow-up with gastroenterology (the GI doctor's) Finish all the antibiotics. Doxycycline can make you sensitive to light and it is easy to receive a sunburn. The antibiotics will cover abdominal infection as well as genitourinary infections. Return if you are unable to keep any fluids down, not urinating for 24 hours, or any other concerns. Your ultrasound was normal today as were your labs. Follow-up with gastroenterology this Sunday at 3:30 in the [facility] office.
[2016-10-24 09:40] LABS: URINE APPEARANCE TURBID (CLEAR); URINE BILIRUBIN NEG (NEG); URINE COLOR YELLOW; URINE EPITHELIAL CELL AUTO >30 /lpf (0-5); URINE NITRITE NEG (NEG); URINE SPECIFIC GRAVITY 1.018 (1.000-1.030); UROBILINOGEN NEG (NEG); ZZUR CULT IF INDIC CLEAN CATCH NO
[2016-10-24 09:52] LABS: MANUAL MICROSCOPIC REQUIRED? NO; REVIEW REQ? NO; SULFASALICYLIC ACID NEG (NEG)
[2016-10-24 10:02] LABS: BASO % 0.2 %; BASO ABS # 0.02 K/uL (0-0.2); COMPLETE YES; EOS % 0.2 %; HEMATOCRIT 40.4 % (37-47); IG% 0.3 %; LYMPH ABS # 1.45 K/uL (1.2-3.4); MEAN CELL VOLUME 85.4 fL (80-100); MEAN CORPUSCULAR HEMOGLOBIN 29.8 pg (25-34); MEAN CORPUSCULAR HGB CONC 34.9 g/dl (32-36); MONO % 3.8 %; NEUT % 79.5 %; PLATELET COUNT 216 K/uL (130-400); RED BLOOD COUNT 4.73 M/uL (4.2-5.4); WHITE BLOOD COUNT 9.06 K/uL (4.8-10.8)
[2016-10-24] MEDS ORDERED: OXYCODONE/ACETAMINOPHEN 5-325 TAB PO STA (10:04)
[2016-10-24 10:25] LABS: BUN/CREATININE RATIO 17.7 (10-20); CALCIUM 9.1 mg/dl (8.5-10.1); CREATININE 0.64 mg/dl (0.60-1.20); POTASSIUM 3.2 mmol/L (3.5-5.1)
[2016-10-24] MEDS ORDERED: POTASSIUM CHLORIDE 10 MEQ TABCR PO STA (10:36)
--- NOTE | 2016-10-24 11:00 | DIAGNOSTIC IMAGING REPORT ---
ULTRASOUND OF THE PELVIS CLINICAL HISTORY: Pelvic pain. COMPARISON STUDY: Pelvic CT dated 10/19/2016. TECHNIQUE: Real-time, grayscale, and color flow sonography of the pelvis is performed both transabdominally and endovaginally. Images are reviewed in the transverse and longitudinal planes. FINDINGS: Uterus: The retroflexed uterus is normal in size and echotexture, measuring 6.4 x 3.7 x 4.9 cm. Endometrium: The endometrium is normal in appearance, and the endometrial stripe is normal in thickness measuring up to 0.3 cm. Ovaries: The ovaries are normal in size and morphology. The right ovary measures 4.5 x 2.0 x 3.1 cm and the left ovary measures 4.2 x 3.0 x 2.6 cm. Bilateral ovarian follicles are noted. Normal Doppler waveforms are shown within both ovaries. Pelvis: There is a small volume of free fluid in the cul-de-sac. No concerning adnexal lesion is seen. IMPRESSION: 1. No acute sonographic abnormality is identified in the pelvis. 2. There is a small volume of free fluid in the cul-de-sac, likely within physiologic limits. Electronically signed by: Benjamin Staples M.D. 10/24/2016 10:59 AM Dictated Date/Time: 10/24/2016 10:58 AM
[2016-10-24] MEDS ORDERED: CEFTRIAXONE SOD INJ 1 GM ADDVIAL IV STA (11:29)
[2016-10-24] MEDS ORDERED: DICY20TA35 PO (11:34)
[2016-10-24] MEDS ORDERED: DOXY100T PO (11:34)
[2016-10-24] MEDS ORDERED: METR-162 PO (11:34)
[2016-10-24] MEDS ORDERED: KETOROLAC TROMETHAMINE 30 MG/ML VIAL IV STA (11:39)
[2016-10-24 12:30] VITALS: BP 131/68; PULSE 88; TEMP 36.4; O2SAT 96
--- NOTE | 2016-10-25 13:33 | EDITING REQUIRED CODING QUERY ---
CODING QUERY To promote full compliance with coding requirements relating to patient care, provider participation is requested in all cases of can top setter uncertainty. Please assist us with the question(s) below: Coding Question(s): Final Impression was not listed on ED Summary. Please complete Impression. Addendum added: Primary diagnosis abdominal pain acute on chronic Secondary diagnosis: Mild hypokalemia 3.2 Secondary diagnosis: Possible pelvic inflammatory disease Physician's Response(s): Final Impression: Thank you Deedee Garcia Principal Diagnosis: "_that condition established after study, to be chiefly responsible for occasioning the admission of the patient to the hospital for care." Co-Existing Principal Diagnosis: "_when two or more diagnoses equally meet the criteria for principal diagnosis as determined by the circumstances of admission, diagnostic work up, and/or therapy provided, and the Alphabetic Index, Tabular List, or another coding guideline does not provide sequencing direction, any one of the diagnoses may be sequenced first." "When the physician has documented what appears to be a current diagnosis in the body of the record, but has not included the diagnosis in the final diagnostic statement, the physician should be asked whether the diagnosis should be added." (Source Coding Clinic 2 QTR90. p3-4)
[2016-10-27 01:35] LABS: CHLAMYDIA TRACH RNA*** NOT DETECTED (NOT DETECTED); GC (NEIS GONORRHOEAE)RNA** NOT DETECTED (NOT DETECTED); TRICHOMONAS VAGINALIS RNA** NOT DETECTED (NOT DETECTED)
== END 2016-10-24 12:30 | disposition home or self-care (01) ==
LOC: C.EDB 08:50
DX: R10.9 Unspecified abdominal pain (principal); E87.6 Hypokalemia; Z82.49 Family history of ischemic heart disease and other diseases of the circulatory system; Z84.1 Family history of disorders of kidney and ureter

== ENCOUNTER 2017-03-09 13:00 | Emergency (ER) | payer OTHER ==
[~2017-03-09] VITALS: Ht 170.2 cm; Wt 60.0 kg
[2017-03-09 13:02] VITALS: TEMP 37; Ht 170.2 cm; Wt 60.0 kg
[2017-03-09] MEDS ORDERED: MoRPHine SULFATE 10 MG/ML CARP/VIAL IV STA (13:32)
[2017-03-09] MEDS ORDERED: SODIUM CHLORIDE 0.9% 1000ML 1,000 ML IV STA (13:32)
[2017-03-09] MEDS ORDERED: PROMETHAZINE HCL INJ 12.5 MG in SODIUM CHLORIDE 0.9% 50ML 50 ML IV STA (13:32)
[2017-03-09] MEDS ORDERED: KETOROLAC TROMETHAMINE 30 MG/ML VIAL IV STA (13:34)
[2017-03-09 13:40] LABS: COMPLETE YES; EOS % 0.1 %; HEMATOCRIT 39.1 % (37-47); IG% 0.1 %; LYMPH % 11.7 %; LYMPH ABS # 1.23 K/uL (1.2-3.4); MEAN CELL VOLUME 87.5 fL (80-100); MEAN CORPUSCULAR HEMOGLOBIN 30.9 pg (25-34); MEAN CORPUSCULAR HGB CONC 35.3 g/dl (32-36); MEAN PLATELET VOLUME 9.8 fL (7.4-10.4); MONO % 2.4 %; NEUT % 85.7 %; PLATELET COUNT 205 K/uL (130-400); RED BLOOD COUNT 4.47 M/uL (4.2-5.4); WHITE BLOOD COUNT 10.47 K/uL (4.8-10.8)
[2017-03-09 14:01] LABS: BUN/CREATININE RATIO 21.6 (10-20); CALCIUM 9.3 mg/dl (8.5-10.1); CREATININE 0.8 mg/dl (0.60-1.20); POTASSIUM 3.3 mmol/L (3.5-5.1)
[2017-03-09 14:04] LABS: ALB/GLOB RATIO 1.4 (0.9-2)
[2017-03-09 14:12] LABS: PREG INTERNAL NEGATIVE QC NEG CLEAR BACKGROUND; PREG INTERNAL POSITIVE QC POS CONTROL LINE
[2017-03-09] MEDS ORDERED: MoRPHine SULFATE 4 MG/ML 1 ML CARP\\VIAL IV STA (14:20)
--- NOTE | 2017-03-09 14:31 | EMERGENCY ROOM VISIT NOTE ---
History First contact with patient: 13:17 Chief Complaint: ABDOMINAL PAIN Stated Complaint: HARD TO BREATHE, ABD PAIN, VOMITING, NAUSEA Nursing Triage Summary: Pt reports lower abdominal pain that started 3 days ago. Pt reports nausea and vomiting. History of Present Illness The patient is a 27 year old female who presents to the Emergency Room with complaints of abdominal pain which began 3 days ago. The patient states that the pain radiates across her abdomen. It is concentrated in the lower abdomen, but she also has epigastric pain which makes it hard to breathe. She has associated nausea and vomiting. She states that she had a fever yesterday of 100.9F. She is concerned because she states that she has had vaginal discharge for the past few months. She has been using Monistat at home for a possible yeast infection. She rates her discomfort a 10/10. The patient has a long history of abdominal problems but states she does not follow up with anyone. She denies urinary symptoms, changes in bowel movements, chest pain or shortness of breath. She is currently breast-feeding and does not get her menstrual period. Review of Systems A complete 10 point review of systems was reviewed with the patient with pertinent positives and negatives as per history of present illness. All else were negative. Past Medical/Surgical History Medical Problems: (1) Abdominal pain affecting (2) Chronic abdominal pain (3) Depression (4) spinal surgery (5) Spinal surgery (6) Vaginal bleeding (7) Vaginal delivery Family History FH: cancer Hypertension Kidney disease or stones Social History Smoking Status: Never Smoker Alcohol Use: none Drug Use: none Marital Status: Housing Status: lives with family Occupation Status: unemployed Current/Historical Medications Scheduled Doxycycline Hyclate (Vibramycin), 100 MG PO BID Metronidazole (Flagyl), 500 MG PO BID Physical Exam Vital Signs Date Time Temp Pulse Resp B/P (MAP) Pulse Ox O2 Delivery O2 Flow Rate FiO2 03/09/17 18:00 46 93/54 98 03/09/17 17:10 48 17 97/52 99 03/09/17 15:00 65 18 131/89 98 Room Air 03/09/17 13:02 37.0 78 18 159/95 93 Room Air Physical Exam VITALS: Vitals are noted on the nurse's note and reviewed by myself. Vital signs stable. GENERAL: This is a 27-year-old female, rolling around on the bed, moaning, makes poor eye contact. EARS: External auditory canals clear, tympanic membranes pearly blackburn without erythema or effusion bilaterally. EYES: Pupils equal round and reactive to light and accommodation. Conjunctivae without injection, sclerae without icterus. MOUTH: Mucous membranes moist. Tonsils are not enlarged. NECK: Supple without nuchal rigidity. No lymphadenopathy. HEART: Regular rate and rhythm without murmurs gallops or rubs. LUNGS: Clear to auscultation bilaterally without wheezes, rales or rhonchi. ABDOMEN: Positive bowel sounds x 4. Abdomen is soft and nondistended. There is generalized mild tenderness with focal tenderness over the lower abdomen. No guarding or rebound tenderness. PELVIC: External genitalia unremarkable. Copious amount of white, milky vaginal discharge noted. No evidence of cervicitis. No cervical motion tenderness. NEURO: Patient was alert and oriented to person place and time. Medical Decision & Procedures ER Provider Diagnostic Interpretation: ABDOMEN 2VIEW W/PA CHEST RTN FINDINGS: The soft tissues, psoas shadows, renal outlines and intestinal gas pattern appear normal. There is no evidence for bowel obstruction. There is no evidence for free intraperitoneal air. No abnormal abdominal calcifications are seen. A frontal view of the chest was performed and is unremarkable. IMPRESSION: Normal study. PELVIC COMPLETE NON OB FINDINGS: Anteflex uterus measures 6.6 x 3.1 x 5.2 cm. Endometrium is homogeneous, 0.25 cm. No focal myometrial mass lesion identified. Right ovary measures 2.3 x 2.1 x 2.4 cm and appears unremarkable with arterial inflow documented. Left ovary measures 2.5 x 2.2 x 2.4 cm and appears unremarkable with arterial inflow documented. Moderate amount of mobile debris noted within the urinary bladder. No significant free pelvic fluid. IMPRESSION: 1. Unremarkable sonographic appearance of the uterus, endometrium and bilateral ovaries without evidence of ovarian torsion. 2. Moderate amount of mobile debris within the urinary bladder lumen is incidentally noted. Correlate with urinalysis. Laboratory Results 03/09/17 13:30 Red Blood Count 4.47, Mean Corpuscular Volume 87.5, Mean Corpuscular Hemoglobin 30.9, Mean Corpuscular Hemoglobin Concent 35.3, Mean Platelet Volume 9.8, Neutrophils (%) (Auto) 85.7, Lymphocytes (%) (Auto) 11.7, Monocytes (%) (Auto) 2.4, Eosinophils (%) (Auto) 0.1, Basophils (%) (Auto) 0.0, Neutrophils # (Auto) 8.97, Lymphocytes # (Auto) 1.23, Monocytes # (Auto) 0.25, Eosinophils # (Auto) 0.01, Basophils # (Auto) 0.00 03/09/17 13:30 Test 03/09/17 13:30 03/09/17 15:30 03/09/17 16:17 White Blood Count 10.47 K/uL (4.8-10.8) Red Blood Count 4.47 M/uL (4.2-5.4) Hemoglobin 13.8 g/dL (12.0-16.0) Hematocrit 39.1 % (37-47) Mean Corpuscular Volume 87.5 fL (80-100) Mean Corpuscular Hemoglobin 30.9 pg (25-34) Mean Corpuscular Hemoglobin Concent 35.3 g/dl (32-36) Platelet Count 205 K/uL (130-400) Mean Platelet Volume 9.8 fL (7.4-10.4) Neutrophils (%) (Auto) 85.7 % Lymphocytes (%) (Auto) 11.7 % Monocytes (%) (Auto) 2.4 % Eosinophils (%) (Auto) 0.1 % Basophils (%) (Auto) 0.0 % Neutrophils # (Auto) 8.97 K/uL (1.4-6.5) Lymphocytes # (Auto) 1.23 K/uL (1.2-3.4) Monocytes # (Auto) 0.25 K/uL (0.11-0.59) Eosinophils # (Auto) 0.01 K/uL (0-0.5) Basophils # (Auto) 0.00 K/uL (0-0.2) RDW Standard Deviation 42.1 fL (36.4-46.3) RDW Coefficient of Variation 13.0 % (11.5-14.5) Immature Granulocyte % (Auto) 0.1 % Immature Granulocyte # (Auto) 0.01 K/uL (0.00-0.02) Anion Gap 9.0 mmol/L (3-11) Est Creatinine Clear Calc Drug Dose 101.8 ml/min Estimated GFR () 118.8 Estimated GFR (Non- 102.5 BUN/Creatinine Ratio 21.6 (10-20) Calcium Level 9.3 mg/dl (8.5-10.1) Total Bilirubin 0.6 mg/dl (0.2-1) Aspartate Amino Transf (AST/SGOT) 16 U/L (15-37) Alanine Aminotransferase (ALT/SGPT) 26 U/L (12-78) Alkaline Phosphatase 59 U/L (45-117) Total Protein 8.2 gm/dl (6.4-8.2) Albumin 4.8 gm/dl (3.4-5.0) Globulin 3.4 gm/dl (2.5-4.0) Albumin/Globulin Ratio 1.4 (0.9-2) Lipase 93 U/L (73-393) Human Chorionic Gonadotropin, Qual NEG (NEG) Urine Color YELLOW Urine Appearance CLEAR (CLEAR) Urine pH 8.0 (4.5-7.5) Urine Specific [place] 1.020 (1.000-1.030) Urine Protein TRACE (NEG) Urine Glucose (UA) NEG (NEG) Urine Ketones TRACE (NEG) Urine Occult Blood NEG (NEG) Urine Nitrite NEG (NEG) Urine Bilirubin NEG (NEG) Urine Urobilinogen NEG (NEG) Urine Leukocyte Esterase NEG (NEG) Urine WBC (Auto) 1-5 /hpf (0-5) Urine RBC (Auto) 0-4 /hpf (0-4) Urine Hyaline Casts (Auto) 1-5 /lpf (0-5) Urine Epithelial Cells (Auto) >30 /lpf (0-5) Urine Bacteria (Auto) NEG (NEG) Date/Time Source Procedure Growth Status 03/09/17 16:55 Vaginal Swab Trichomonas Preparation - Final Complete Medications Administered Medications (Trade) Dose Ordered Sig/Oli Route Start Time Stop Time Status Last Admin Dose Admin Sodium Chloride 1,000 ml @ 999 mls/hr Q1H1M STAT IV 03/09/17 13:32 03/09/17 14:32 DC 03/09/17 13:44 999 MLS/HR Promethazine HCl 12.5 mg/Sodium Chloride 50.5 ml @ 204 mls/hr NOW STAT IV 03/09/17 13:32 03/09/17 13:46 DC 03/09/17 13:51 204 MLS/HR Ketorolac Tromethamine (Toradol Inj) 30 mg NOW STAT IV 03/09/17 13:34 03/09/17 13:36 DC 03/09/17 13:44 30 MG Morphine Sulfate (MoRPHine SULFATE INJ) 4 mg NOW STAT IV 03/09/17 14:20 03/09/17 14:21 DC 03/09/17 14:59 4 MG Prochlorperazine Edisylate (Compazine Inj) 10 mg NOW STAT IV 03/09/17 15:16 03/09/17 15:17 DC 03/09/17 15:33 10 MG Ceftriaxone Sodium (Rocephin Inj) 1 gm NOW STAT IV 03/09/17 17:00 03/09/17 17:01 DC 03/09/17 17:10 1 GM ED Course The patient was evaluated as above. Labs were drawn and IV access was obtained. Patient was medicated with 12.5 mg Phenergan IV, 1 L normal saline solution and 30 mg Toradol IV. Patient requested something additional for pain and was given 4 mg morphine IV. X-ray and pelvic ultrasound was performed and read by radiology as above. Patient was reevaluated and states her pain has somewhat resolved, but she still is nauseous. She was given Compazine with significant relief. Patient was given 1 g Rocephin. Findings were discussed. She will be treated with doxycycline and Flagyl at home. Discharge instructions were reviewed with the patient. The patient verbalized understanding of my assessment and treatment plan and was discharged home in good condition. Medical Decision Differential diagnosis includes ovarian cyst, ovarian torsion, ectopic , endometriosis, PID, appendicitis, cholecystitis, gastroenteritis, colitis, among others. The patient is a 27-year-old female who presents today complaining of abdominal pain and vomiting. Patient has been seen here multiple times in the past due to issues with chronic abdominal pain. Labs revealed no leukocytosis, anemia or concerning electrolyte abnormalities. Urinalysis was suggestive of contamination. Serum was negative. Abdominal series and pelvic ultrasound were performed and read by radiology with no acute findings. Pelvic exam did show a copious amount of discharge and given the patient's history of PID I do feel she should be treated for this. She was given 1 g Rocephin in the emergency department. She will be placed on doxycycline and Flagyl. She was instructed to follow-up with [facility]PERATOR or her primary care provider. She was treated symptomatically in the emergency department with relief of symptoms. She was instructed to return here for fevers, worsening abdominal pain, worsening vomiting or any other new/concerning symptoms. Based on the patient's presentation and work up, I feel the patient is stable for outpatient treatment. The patient was educated to return to the emergency department for any worsening of their current condition or new/concerning symptoms. She will follow up with her [facility] MACHINE OPERATOR/PCP. Medication Reconcilliation Current Medication List: was personally reviewed by me Blood Pressure Screening Patient's blood pressure: Low blood pressure Impression Primary Impression: Lower abdominal pain Departure Information Dispostion Home / Self-Care Condition GOOD Prescriptions Doxycycline Hyclate (VIBRAMYCIN) 100 Mg Cap 100 MG PO BID for 14 Days, #28 CAP Prov: Lacey Hunt .YANI 03/09/17 Metronidazole (Flagyl) 500 Mg Tab 500 MG PO BID for 7 Days, #14 TAB Prov: Lacey Hunt .YANI 03/09/17 Referrals Bonita Hill M.D. (MEDICAL) (PCP) Patient Instructions My [facility] Additional Instructions You have been treated in the Emergency Department your Abdominal Pain. Laboratory results and imaging studies have ruled out any emergent causes for your abdominal pain which would warrant admission or surgery. Your pelvic cultures are pending. You will be contacted with any positive results. You may call and check if you do not receive any results in 3-4 days. You were prescribed doxycycline to be taken twice daily for 14 days. This is an antibiotic. All antibiotics have the potential to cause diarrhea. Stop this medication and contact a medical provider if you were to develop any significant adverse side effects including: wheezing, shortness of breath, passing out, vomiting, or a diffuse rash. Always take antibiotics as directed and COMPLETE the ENTIRE course regardless of the improvement of your symptoms. Do not take this medication with daily. You were prescribed Flagyl to be taken twice daily for 7 days. This is an antibiotic. All antibiotics have the potential to cause diarrhea. Stop this medication and contact a medical provider if you were to develop any significant adverse side effects including: wheezing, shortness of breath, passing out, vomiting, or a diffuse rash. Always take antibiotics as directed and COMPLETE the ENTIRE course regardless of the improvement of your symptoms. Do not drink any alcohol taking this medication, as it can cause severe nausea and vomiting. As discussed with the pharmacist, you should "pump and dump" until 24 hours after finishing these medications. For pain control, you can use the following [id number] medicines (if >12 yo): - Regular strength (325mg/tab) Tylenol (acetaminophen) 2 tabs every 4-6 hours as needed. Do not exceed 12 tablets in a 24 hour period. Avoid taking more than 4 grams (4000 mg) of Tylenol per day. This includes any other sources of acetaminophen you may take on a regular basis. - Regular strength (200 mg/tab) Advil (ibuprofen) 1-2 tabs every 4-6 hours as needed. Do not exceed a dose of 3200 mg per day. Drink plenty of water and stay well hydrated. As with any trip to the Emergency Department, you should follow-up with your Primary Care Provider from today's visit. You should also call your [facility] MACHINE OPERATOR to schedule follow-up. Return to the emergency department with worsening pain, worsening vomiting, high fevers or any other new/concerning symptoms.
--- NOTE | 2017-03-09 14:43 | DIAGNOSTIC IMAGING REPORT ---
ABDOMEN 2VIEW W/PA CHEST RTN CLINICAL HISTORY: abd pain, vomiting nausea. Vomiting. COMPARISON STUDY: 12/24/2015 FINDINGS: The soft tissues, psoas shadows, renal outlines and intestinal gas pattern appear normal. There is no evidence for bowel obstruction. There is no evidence for free intraperitoneal air. No abnormal abdominal calcifications are seen. A frontal view of the chest was performed and is unremarkable. IMPRESSION: Normal study. The above report was generated using voice recognition software. It may contain grammatical, syntax or spelling errors. Electronically signed by: Romain Del Valle M.D. 03/09/2017 2:41 PM Dictated Date/Time: 03/09/2017 2:41 PM
--- NOTE | 2017-03-09 15:00 | DIAGNOSTIC IMAGING REPORT ---
PELVIC COMPLETE NON OB HISTORY: 27 years-old Female abd pain, llq tenderness, vomiting, vaginal discharge COMPARISON: Pelvic ultrasound 10/24/2016 TECHNIQUE: Multiple real-time sonographic images of the deep pelvic structures were obtained transabdominally assessing grayscale appearance, color and spectral flow. Patient denied the transvaginal portion of the exam. FINDINGS: Anteflex uterus measures 6.6 x 3.1 x 5.2 cm. Endometrium is homogeneous, 0.25 cm. No focal myometrial mass lesion identified. Right ovary measures 2.3 x 2.1 x 2.4 cm and appears unremarkable with arterial inflow documented. Left ovary measures 2.5 x 2.2 x 2.4 cm and appears unremarkable with arterial inflow documented. Moderate amount of mobile debris noted within the urinary bladder. No significant free pelvic fluid. IMPRESSION: 1. Unremarkable sonographic appearance of the uterus, endometrium and bilateral ovaries without evidence of ovarian torsion. 2. Moderate amount of mobile debris within the urinary bladder lumen is incidentally noted. Correlate with urinalysis. The above report was generated using voice recognition software. It may contain grammatical, syntax or spelling errors. Electronically signed by: Yoshi Hubbard M.D. 03/09/2017 2:59 PM Dictated Date/Time: 03/09/2017 2:55 PM
[2017-03-09] MEDS ORDERED: PROCHLORPERAZINE 5 MG/ML 2 ML VIAL IV STA (15:16)
[2017-03-09 15:51] LABS: URINE APPEARANCE CLEAR (CLEAR); URINE BILIRUBIN NEG (NEG); URINE COLOR YELLOW; URINE EPITHELIAL CELL AUTO >30 /lpf (0-5); URINE NITRITE NEG (NEG); UROBILINOGEN NEG (NEG); ZZUR CULT IF INDIC CLEAN CATCH NO
[2017-03-09 15:52] LABS: MANUAL MICROSCOPIC REQUIRED? NO; REVIEW REQ? NO
[2017-03-09 15:54] LABS: SULFASALICYLIC ACID POS (NEG)
[2017-03-09] MEDS ORDERED: CEFTRIAXONE SOD INJ 1 GM ADDVIAL IV STA (17:00)
[2017-03-09] MEDS ORDERED: METR-163 PO (17:46)
[2017-03-09] MEDS ORDERED: DOXY100C PO (17:46)
--- NOTE | 2017-03-09 17:55 | Pharmacy Progress Note ---
ED Pharmacist Progress Note Date of Service: Mar 09, 2017. Patient will be going home with treatment for PID and BV. Possible ABX regimens for treatment of these conditions reviewed (Rocephin + Azithromycin or Rocephin + Doxycycline; plus Metronidazole or Clindamycin systemic or local application) for safety during . Based upon a review of the literature and the risks vs benefits I would recommend not during the treatment of PID regardless of the ABX regimen chosen. I explained the need to "pump and dump" while receiving the prescribed antibiotics. I advised the patient she should wait >24 hrs after the last dose of ABX to begin again. She stated she understood the risks and agreed to refrain from until after ABX therapy has completed.
[2017-03-09 18:00] VITALS: BP 93/54; PULSE 46; O2SAT 98
[2017-03-13 02:32] LABS: CHLAMYDIA TRACH RNA*** NOT DETECTED (NOT DETECTED); GC (NEIS GONORRHOEAE)RNA** NOT DETECTED (NOT DETECTED)
== END 2017-03-09 19:06 | disposition home or self-care (01) ==
LOC: C.EDB 13:01
DX: R10.30 Lower abdominal pain, unspecified (principal); R10.13 Epigastric pain; R11.2 Nausea with vomiting, unspecified; G89.29 Other chronic pain

== ENCOUNTER 2017-04-10 13:40 | Emergency (ER) | payer OTHER ==
[~2017-04-10] VITALS: Ht 170.2 cm; Wt 57.7 kg
[2017-04-10 13:42] VITALS: Ht 170.2 cm; Wt 57.7 kg
[2017-04-10] MEDS ORDERED: ONDANSETRON INJ 2 MG/ML 2 ML VIAL IV STA (14:36)
[2017-04-10 15:05] LABS: BUN/CREATININE RATIO 23.3 (10-20); CREATININE 0.78 mg/dl (0.60-1.20); POTASSIUM 3.4 mmol/L (3.5-5.1)
[2017-04-10 15:07] LABS: ALB/GLOB RATIO 1.4 (0.9-2)
[2017-04-10 15:11] LABS: BASO % 0.1 %; BASO ABS # 0.01 K/uL (0-0.2); COMPLETE YES; EOS % 0.1 %; HEMATOCRIT 41.5 % (37-47); IG% 0.2 %; LYMPH % 21.7 %; LYMPH ABS # 1.86 K/uL (1.2-3.4); MEAN CELL VOLUME 89.8 fL (80-100); MEAN CORPUSCULAR HGB CONC 34.5 g/dl (32-36); MEAN PLATELET VOLUME 10.4 fL (7.4-10.4); MONO % 3.7 %; NEUT % 74.2 %; PLATELET COUNT 195 K/uL (130-400); RED BLOOD COUNT 4.62 M/uL (4.2-5.4); WHITE BLOOD COUNT 8.59 K/uL (4.8-10.8)
[2017-04-10] MEDS ORDERED: SODIUM CHLORIDE 0.9% 1000ML 1,000 ML IV STA ×2 (15:15→16:02)
[2017-04-10] MEDS ORDERED: LORAZEPAM 2 MG/ML 1 ML VIAL IV STA (15:18)
--- NOTE | 2017-04-10 15:22 | EMERGENCY ROOM VISIT NOTE ---
History Report prepared by Tao: Oneida Bradley Under the Supervision of: Stanley CooperO. First contact with patient: 14:56 Chief Complaint: ABDOMINAL PAIN Stated Complaint: SEVERE PAIN IN AB AREA;NAUSEA;THROWING UP FOR DAYS History of Present Illness The patient is a 27 year old female who presents to the Emergency Room with complaints of waxing and waning abdominal pain beginning 3 days ago. The patient reports that she has been nauseous and vomiting. She states that she feels as if something is hard or full in her abdomen, and that she feels bloated. She reports that she is unsure of what may have caused the pain. The patient states that she has not had her period since the of her son and that she is losing weight. She reports that her son will be a year old next month and that she tries to breast feed him. Per her mother, the patient has 4 children and has been sick during every . The patient reports that she was in the ED 1 month ago for abdominal pain, and thinks it is the same pain this time as it was in her prior visit. She states that she has not been taking anything for her pain. She denies having a history of IBS, gastrointestinal problems, and Crohn's Disease. Pt denies headache, change in vision, fevers, chest pain, shortness of breath, diarrhea, pain with urination, and melena. Pt has been seen here several times for the same complaints. Has had recent US/ CT/xrays and several episodes of labs for same complaints. Pt hasn't yet followed up with GI. No other dietary changes, denies trauma. Source of History: patient Onset: 3 days ago Position: abdomen Quality: other (bloated ) Timing: waxes/wanes Associated Symptoms: + urinary symptoms, No fevers, No chest pain, No SOB, No melena, No diarrhea Review of Systems See HPI for pertinent positives & negatives. A total of 10 systems reviewed and were otherwise negative. Past Medical & Surgical Medical Problems: (1) Abdominal pain affecting (2) Chronic abdominal pain (3) Depression (4) spinal surgery (5) Spinal surgery (6) Vaginal bleeding (7) Vaginal delivery Family History FH: cancer Hypertension Kidney disease or stones Social History Smoking Status: Never Smoker Alcohol Use: none Drug Use: none Marital Status: Housing Status: lives with family Occupation Status: unemployed Current/Historical Medications Scheduled Cephalexin Monohydrate (Keflex), 1 CAP PO QID Ondasetron Odt (Zofran Odt), 4 MG SL Q6H Allergies Coded Allergies: No Known Allergies (Unverified , 04/10/17) Physical Exam Vital Signs Date Time Temp Pulse Resp B/P (MAP) Pulse Ox O2 Delivery O2 Flow Rate FiO2 04/10/17 20:39 36.9 82 18 111/68 97 04/10/17 20:38 82 18 111/68 97 Room Air 04/10/17 16:10 86 18 115/73 97 Room Air 04/10/17 13:42 36.9 86 18 158/102 97 Room Air Physical Exam GENERAL: alert, tearful, anxious appearing, well nourished, non-toxic EYE EXAM: normal conjunctiva, PERRL and EOM's grossly intact OROPHARYNX: no exudate, no erythema, lips, buccal mucosa, and tongue normal and mucous membranes are moist NECK: supple, no nuchal rigidity, no adenopathy, non-tender LUNGS: Clear to auscultation. Normal chest wall mechanics HEART: no murmurs, S1 normal and S2 normal ABDOMEN: abdomen soft, generalized discomfort and focal area of tenderness in epigastric region, normo-active bowel sounds, no masses, no rebound or guarding , dull percussion sound. BACK: Back is symmetrical on inspection and there is no deformity, no midline tenderness, no CVA tenderness. SKIN: no rashes and no bruising UPPER EXTREMITIES: upper extremities are grossly normal. LOWER EXTREMITIES: No pitting edema. NEURO EXAM: Normal sensorium, cranial nerves II-XII grossly intact, normal speech, no gross weakness of arms, no gross weakness of legs. Medical Decision & Procedures ER Provider Diagnostic Interpretation: Radiology results have been interpreted by the radiologist and reviewed by me. PA CHEST RADIOGRAPH AND UPRIGHT AND SUPINE AP RADIOGRAPHS OF THE ABDOMEN CLINICAL HISTORY: Abdominal pain. Constipation. COMPARISON STUDY: Abdominal series and chest radiograph March 09, 2017. FINDINGS: Lung volumes are normal. Lungs are clear. No pneumothorax or pleural effusion is present. Nipple shadows project over the lower chest. Cardiac size is normal. Mediastinal contours are normal. There is no evidence of pulmonary edema. Anterior cervical spine fusion is noted. There is no free air. Bowel gas pattern is normal. The amount of stool within the colon and rectum is within normal limits. Pelvic calcifications likely reflect phleboliths. IMPRESSION: 1. No free air or evidence of bowel obstruction. 2. No acute cardiopulmonary findings. Electronically signed by: Dennis Gomze M.D. 04/10/2017 7:25 PM Dictated Date/Time: 04/10/2017 7:24 PM Laboratory Results 04/10/17 14:20 Red Blood Count 4.62, Mean Corpuscular Volume 89.8, Mean Corpuscular Hemoglobin 31.0, Mean Corpuscular Hemoglobin Concent 34.5, Mean Platelet Volume 10.4, Neutrophils (%) (Auto) 74.2, Lymphocytes (%) (Auto) 21.7, Monocytes (%) (Auto) 3.7, Eosinophils (%) (Auto) 0.1, Basophils (%) (Auto) 0.1, Neutrophils # (Auto) 6.37, Lymphocytes # (Auto) 1.86, Monocytes # (Auto) 0.32, Eosinophils # (Auto) 0.01, Basophils # (Auto) 0.01 04/10/17 14:20 Test 04/10/17 14:20 04/10/17 15:50 White Blood Count 8.59 K/uL (4.8-10.8) Red Blood Count 4.62 M/uL (4.2-5.4) Hemoglobin 14.3 g/dL (12.0-16.0) Hematocrit 41.5 % (37-47) Mean Corpuscular Volume 89.8 fL (80-100) Mean Corpuscular Hemoglobin 31.0 pg (25-34) Mean Corpuscular Hemoglobin Concent 34.5 g/dl (32-36) Platelet Count 195 K/uL (130-400) Mean Platelet Volume 10.4 fL (7.4-10.4) Neutrophils (%) (Auto) 74.2 % Lymphocytes (%) (Auto) 21.7 % Monocytes (%) (Auto) 3.7 % Eosinophils (%) (Auto) 0.1 % Basophils (%) (Auto) 0.1 % Neutrophils # (Auto) 6.37 K/uL (1.4-6.5) Lymphocytes # (Auto) 1.86 K/uL (1.2-3.4) Monocytes # (Auto) 0.32 K/uL (0.11-0.59) Eosinophils # (Auto) 0.01 K/uL (0-0.5) Basophils # (Auto) 0.01 K/uL (0-0.2) RDW Standard Deviation 42.8 fL (36.4-46.3) RDW Coefficient of Variation 13.1 % (11.5-14.5) Immature Granulocyte % (Auto) 0.2 % Immature Granulocyte # (Auto) 0.02 K/uL (0.00-0.02) Anion Gap 10.0 mmol/L (3-11) Est Creatinine Clear Calc Drug Dose 100.4 ml/min Estimated GFR () 122.5 Estimated GFR (Non- 105.7 BUN/Creatinine Ratio 23.3 (10-20) Calcium Level 9.0 mg/dl (8.5-10.1) Total Bilirubin 0.6 mg/dl (0.2-1) Aspartate Amino Transf (AST/SGOT) 19 U/L (15-37) Alanine Aminotransferase (ALT/SGPT) 25 U/L (12-78) Alkaline Phosphatase 58 U/L (45-117) Total Protein 8.3 gm/dl (6.4-8.2) Albumin 4.9 gm/dl (3.4-5.0) Globulin 3.4 gm/dl (2.5-4.0) Albumin/Globulin Ratio 1.4 (0.9-2) Lipase 93 U/L (73-393) Urine Color YELLOW Urine Appearance CLOUDY (CLEAR) Urine pH 8.5 (4.5-7.5) Urine Specific [place] 1.024 (1.000-1.030) Urine Protein NEG (NEG) Urine Glucose (UA) NEG (NEG) Urine Ketones 2+ (NEG) Urine Occult Blood NEG (NEG) Urine Nitrite NEG (NEG) Urine Bilirubin NEG (NEG) Urine Urobilinogen NEG (NEG) Urine Leukocyte Esterase TRACE (NEG) Urine WBC (Auto) 5-10 /hpf (0-5) Urine RBC (Auto) 0-4 /hpf (0-4) Urine Hyaline Casts (Auto) 1-5 /lpf (0-5) Urine Epithelial Cells (Auto) >30 /lpf (0-5) Urine Bacteria (Auto) 2+ (NEG) Urine Pathogenic Casts /lpf (0) Urine Test NEG (NEG) Laboratory results per my review. Medications Administered Medications (Trade) Dose Ordered Sig/Oli Route Start Time Stop Time Status Last Admin Dose Admin Ondansetron HCl (Zofran Inj) 4 mg NOW STAT IV 04/10/17 14:36 04/10/17 14:38 DC 04/10/17 14:42 4 MG Sodium Chloride 1,000 ml @ 999 mls/hr Q1H1M STAT IV 04/10/17 15:15 04/10/17 16:15 DC 04/10/17 15:43 999 MLS/HR Pantoprazole Sodium 40 mg/ Syringe 10 ml @ 5 mls/min NOW ONCE IV 04/10/17 15:30 04/10/17 15:31 DC 04/10/17 15:43 5 MLS/MIN Lorazepam (Ativan Inj) 0.5 mg NOW STAT IV 04/10/17 15:18 04/10/17 15:19 DC 04/10/17 15:44 0.5 MG Sodium Chloride 1,000 ml @ 999 mls/hr Q1H1M STAT IV 04/10/17 16:02 04/10/17 17:02 DC 04/10/17 16:10 999 MLS/HR Cephalexin Monohydrate (Keflex Cap) 500 mg NOW STAT PO 04/10/17 20:01 04/10/17 20:02 DC 04/10/17 20:31 500 MG Ondansetron HCl (ZOFRAN ODT 4MG Home Pack) 1 homepack UD STAT PO 04/10/17 20:01 04/10/17 20:02 DC 04/10/17 20:32 1 HOMEPACK ED Course 1508: The patient was evaluated in room B5. A complete history and physical exam was performed. 1515: Ordered Sodium Chloride 1,000 ml @ 999 mls/hr IV. 1518: Ordered Lorazepam 0.5 mg IV. 1530: Ordered Pantoprazole Sodium 40 mg Syringe 10 ml @ 5 mls/min IV. 1602: Ordered Sodium Chloride 1,000 ml @ 999 mls/hr IV. 1900: The patient was signed out to Dr. Mohan due to change of shift. 1934: Discussed with pt all results. Discussed f/u with GI. Pt tolerating ice chips here. Discussed use of OTC acid reducing medication. 2000: Ordered Ondansetron HCl 1 homepack PO, Keflex Cap 500 mg PO. 2019: Upon reevaluation, the patient is feeling better. I discussed the findings and the treatment plan with the patient. She verbalizes agreement and understanding. She was discharged home. Medical Decision Differential diagnosis: Etiologies such as appendicitis, diverticulitis, PUD, biliary pathology, UTI, pancreatitis, obstruction, mesenteric ischemia, aortic pathology, infections, inflammatory bowel disease, renal colic, as well as others were entertained. UA suboptimal however culture sent and pt covered with antibiotic as a precaution. Doubt pyelo. Pt tolerated po here. VS stable. Discussed acid reducing meds, avoidance of acid in her diet, and f/u with GI. Mother at bedside and was supportive of this plan. Doubt perf, gi bleed, dissection, pyelo, colitis, diverticulitis, appendicitis, ectopic, pid, toa, torsion. Medication Reconcilliation Current Medication List: was personally reviewed by me Blood Pressure Screening Patient's blood pressure: Elevated blood pressure Blood pressure disposition: Elevated BP felt to be situational Impression Primary Impression: Left upper quadrant pain Additional Impression: Nausea & vomiting Scribe Attestation The scribe's documentation has been prepared under my direction and personally reviewed by me in its entirety. I confirm that the note above accurately reflects all work, treatment, procedures, and medical decision making performed by me. Departure Information Dispostion Home / Self-Care Prescriptions Cephalexin Monohydrate (Keflex) 500 Mg Cap 1 CAP PO QID for 7 Days, #28 CAP Prov: Harjinder Mohan MD 04/10/17 Ondasetron Odt (ZOFRAN ODT) 4 Mg Tab 4 MG SL Q6H for Nausea, #6 TAB Prov: Harjinder Mohan MD 04/10/17 Referrals Bonita Hill M.D. (MEDICAL) (PCP) Adis Patton M.D. Forms HOME CARE DOCUMENTATION FORM, IMPORTANT VISIT INFORMATION, School Instructions, Work Instructions Patient Instructions ED Gastroenteritis Viral, ED UTI Cystitis Female, My [facility] Additional Instructions Follow up with Dr Patton's office Culture results are usually available in approx 48 hours You have been examined and treated today on an emergency basis only. This is not a substitute for, or an effort to provide, complete comprehensive medical care. It is impossible to recognize and treat all injuries or illnesses in a single emergency department visit. It is therefore important that you follow up closely with Dr Hill. Call as soon as possible for an appointment. Thank you for your time and consideration. I look forward to speaking with you again soon. Please don't hesitate to call us if you have any questions. Problem Qualifiers Additional Impression: Nausea & vomiting Vomiting type: unspecified Vomiting Intractability: non-intractable Qualified Codes: R11.2 - Nausea with vomiting, unspecified
[2017-04-10] MEDS ORDERED: PANTOprazole INJ 40 MG in SYRINGE 0 ML IV ONE (15:30)
[2017-04-10] MEDS ORDERED: NURSING VERBAL MED ORDER ONE (16:00)
[2017-04-10 16:04] LABS: URINE APPEARANCE CLOUDY (CLEAR); URINE BILIRUBIN NEG (NEG); URINE COLOR YELLOW; URINE EPITHELIAL CELL AUTO >30 /lpf (0-5); URINE NITRITE NEG (NEG); URINE PH 8.5 (4.5-7.5); URINE SPECIFIC GRAVITY 1.024 (1.000-1.030); UROBILINOGEN NEG (NEG); ZZUR CULT IF INDIC CLEAN CATCH YES
[2017-04-10 16:17] LABS: MANUAL MICROSCOPIC REQUIRED? NO; REVIEW REQ? YES; SULFASALICYLIC ACID NEG (NEG)
--- NOTE | 2017-04-10 19:27 | DIAGNOSTIC IMAGING REPORT ---
PA CHEST RADIOGRAPH AND UPRIGHT AND SUPINE AP RADIOGRAPHS OF THE ABDOMEN CLINICAL HISTORY: Abdominal pain. Constipation. COMPARISON STUDY: Abdominal series and chest radiograph March 09, 2017. FINDINGS: Lung volumes are normal. Lungs are clear. No pneumothorax or pleural effusion is present. Nipple shadows project over the lower chest. Cardiac size is normal. Mediastinal contours are normal. There is no evidence of pulmonary edema. Anterior cervical spine fusion is noted. There is no free air. Bowel gas pattern is normal. The amount of stool within the colon and rectum is within normal limits. Pelvic calcifications likely reflect phleboliths. IMPRESSION: 1. No free air or evidence of bowel obstruction. 2. No acute cardiopulmonary findings. Electronically signed by: Dennis Gomez M.D. 04/10/2017 7:25 PM Dictated Date/Time: 04/10/2017 7:24 PM
[2017-04-10] MEDS ORDERED: ONDANSETRON HOME PACK 4MG OD TAB PO STA (20:01)
[2017-04-10] MEDS ORDERED: CEPHALEXIN MONOHYDRATE 250 MG CAP PO STA (20:01)
[2017-04-10] MEDS ORDERED: CEPH500C PO (20:03)
[2017-04-10] MEDS ORDERED: ONDA4TAB10 SL (20:03)
[2017-04-10 20:39] VITALS: BP 111/68; PULSE 82; TEMP 36.9; O2SAT 97
[2017-04-11] MEDS ORDERED: PANT40TA PO (18:27)
== END 2017-04-10 20:39 | disposition home or self-care (01) ==
LOC: C.EDB 13:41
DX: R10.12 Left upper quadrant pain (principal); R11.2 Nausea with vomiting, unspecified; G89.29 Other chronic pain; F32.9 Major depressive disorder, single episode, unspecified; Z80.9 Family history of malignant neoplasm, unspecified; Z82.49 Family history of ischemic heart disease and other diseases of the circulatory system; Z84.1 Family history of disorders of kidney and ureter

== ENCOUNTER 2017-04-11 14:59 | Emergency (ER) | payer OTHER ==
[~2017-04-11] VITALS: Ht 170.2 cm; Wt 59.4 kg
[~2017-04-11 14:59] MED LIST changes: +CEPH500C PO; +ONDA4TAB10 SL; -PROM1SUP19 PR
[2017-04-11 15:03] VITALS: TEMP 37.9; Ht 170.2 cm; Wt 59.4 kg
[2017-04-11] MEDS ORDERED: SODIUM CHLORIDE 0.9% 1000ML 1,000 ML IV ONE (15:25)
[2017-04-11] MEDS ORDERED: ONDANSETRON INJ 2 MG/ML 2 ML VIAL IV STA (15:25)
[2017-04-11] MEDS ORDERED: SODIUM CHLORIDE 0.9% 1000ML 1,000 ML IV STA (15:25)
[2017-04-11] MEDS ORDERED: LORAZEPAM 2 MG/ML 1 ML VIAL IV STA (15:27)
[2017-04-11 16:12] LABS: URINE APPEARANCE CLEAR (CLEAR); URINE BILIRUBIN NEG (NEG); URINE COLOR YELLOW; URINE NITRITE NEG (NEG); URINE SPECIFIC GRAVITY 1.012 (1.000-1.030); UROBILINOGEN NEG (NEG)
[2017-04-11 16:14] LABS: BASO % 0.1 %; BASO ABS # 0.01 K/uL (0-0.2); COMPLETE YES; EOS % 0.1 %; IG% 0.2 %; LYMPH % 20.1 %; LYMPH ABS # 1.88 K/uL (1.2-3.4); MEAN CELL VOLUME 87.4 fL (80-100); MEAN CORPUSCULAR HEMOGLOBIN 31.8 pg (25-34); MEAN CORPUSCULAR HGB CONC 36.3 g/dl (32-36); MEAN PLATELET VOLUME 10.1 fL (7.4-10.4); MONO % 4.7 %; NEUT % 74.8 %; PLATELET COUNT 192 K/uL (130-400); RED BLOOD COUNT 4.69 M/uL (4.2-5.4); WHITE BLOOD COUNT 9.37 K/uL (4.8-10.8)
[2017-04-11 16:15] LABS: MANUAL MICROSCOPIC REQUIRED? NO; REVIEW REQ? NO
--- NOTE | 2017-04-11 16:28 | EMERGENCY ROOM VISIT NOTE ---
History Report prepared by Tao: Kathy Dolan Under the Supervision of: Dr. Christiano Valverde M.D. First contact with patient: 15:16 Chief Complaint: ABDOMINAL PAIN Stated Complaint: ABDOMINAL PAIN, CHEST TIGHTNESS Nursing Triage Summary: severre abd pain n/v seen in ER for same s/s, pt reports "No better" crying at triage History of Present Illness The patient is a 27 year old female who presents to the Emergency Room with complaints of intermittent abdominal pain starting 4 days ago. She has a history of chronic abdominal pain and has had a CT and US in the past which has found nothing. She has also had a scope several years ago. She was seen in the ED yesterday for the same complaints. The pain is in her upper abdomen and into her chest. She describes the pain as a tightness. The pain seems to go away when she goes to sleep at night. It worsens when she moves around. She feels like she is bloated. She states that she feels hot and has chills at times. She is vomiting and feels SOB. She has not had a bowel movement since the pain started. She denies any headache or urinary symptoms. She denies any history of abdominal surgeries. She had her last child 1 year ago. She is currently not . Source of History: patient Onset: 4 days ago Position: abdomen Quality: other (tightness) Timing: intermittent Modifying Factors (Worsening): movement Modifying Factors (Relieving): other (nighttime) Associated Symptoms: + chills, + chest pain, + SOB, + vomiting, No headache , No urinary symptoms Review of Systems See HPI for pertinent positives & negatives. A total of 10 systems reviewed and were otherwise negative. Past Medical & Surgical Medical Problems: (1) Abdominal pain affecting (2) Chronic abdominal pain (3) Depression (4) spinal surgery (5) Spinal surgery (6) Vaginal bleeding (7) Vaginal delivery Old medical records were reviewed. Nurse's notes were reviewed and I agree with. Family History FH: cancer Hypertension Kidney disease or stones Social History Smoking Status: Never Smoker Alcohol Use: none Drug Use: none Marital Status: Housing Status: lives with family Occupation Status: unemployed Current/Historical Medications Scheduled Cephalexin Monohydrate (Keflex), 1 CAP PO QID Ondasetron Odt (Zofran Odt), 4 MG SL Q6H Pantoprazole (Protonix), 40 MG PO DAILY Allergies Coded Allergies: No Known Allergies (Unverified , 04/10/17) Physical Exam Vital Signs Date Time Temp Pulse Resp B/P (MAP) Pulse Ox O2 Delivery O2 Flow Rate FiO2 04/11/17 18:50 68 18 121/63 98 04/11/17 17:40 72 18 130/62 98 Room Air 04/11/17 16:26 55 18 99/51 98 Room Air 04/11/17 15:03 37.9 72 20 158/91 99 Room Air Physical Exam General: Uncomfortable appearing young female complaining of epigastric abdominal pain. Well developed well nourished. Normal speech HEENT: Normal cephalic atraumatic. Pupils are equal round and reactive to light. Extraocular movements are intact. Oropharynx is pink with moist mucous membranes. No swelling of the mouth lips or tongue. Neck: Supple with a midline trachea. No meningeal signs or stiffness, no JVD or bruits. No Stridor. Chest: Clear to auscultation bilaterally. No wheezes or rhonchi. No increased work of breathing. Heart: regular rate and rhythm. Abdomen: Soft, tender in the epigastric area, mildly diffusely, nondistended without rebound guarding or rigidity. Extremities: No cyanosis clubbing or edema. No calf tenderness or assymetry Spine/Back. Non tender to palpation. No CVA tenderness Skin: Good turgor without rashes. Neurologic exam: Cranial nerves two through 12 are intact. Motor and sensation are intact and symmetrical throughout. Medical Decision & Procedures Laboratory Results 04/11/17 15:50 Red Blood Count 4.69, Mean Corpuscular Volume 87.4, Mean Corpuscular Hemoglobin 31.8, Mean Corpuscular Hemoglobin Concent 36.3, Mean Platelet Volume 10.1, Neutrophils (%) (Auto) 74.8, Lymphocytes (%) (Auto) 20.1, Monocytes (%) (Auto) 4.7, Eosinophils (%) (Auto) 0.1, Basophils (%) (Auto) 0.1, Neutrophils # (Auto) 7.01, Lymphocytes # (Auto) 1.88, Monocytes # (Auto) 0.44, Eosinophils # (Auto) 0.01, Basophils # (Auto) 0.01 04/11/17 15:50 Test 04/11/17 15:50 White Blood Count 9.37 K/uL (4.8-10.8) Red Blood Count 4.69 M/uL (4.2-5.4) Hemoglobin 14.9 g/dL (12.0-16.0) Hematocrit 41.0 % (37-47) Mean Corpuscular Volume 87.4 fL (80-100) Mean Corpuscular Hemoglobin 31.8 pg (25-34) Mean Corpuscular Hemoglobin Concent 36.3 g/dl (32-36) Platelet Count 192 K/uL (130-400) Mean Platelet Volume 10.1 fL (7.4-10.4) Neutrophils (%) (Auto) 74.8 % Lymphocytes (%) (Auto) 20.1 % Monocytes (%) (Auto) 4.7 % Eosinophils (%) (Auto) 0.1 % Basophils (%) (Auto) 0.1 % Neutrophils # (Auto) 7.01 K/uL (1.4-6.5) Lymphocytes # (Auto) 1.88 K/uL (1.2-3.4) Monocytes # (Auto) 0.44 K/uL (0.11-0.59) Eosinophils # (Auto) 0.01 K/uL (0-0.5) Basophils # (Auto) 0.01 K/uL (0-0.2) RDW Standard Deviation 40.7 fL (36.4-46.3) RDW Coefficient of Variation 12.7 % (11.5-14.5) Immature Granulocyte % (Auto) 0.2 % Immature Granulocyte # (Auto) 0.02 K/uL (0.00-0.02) Urine Color YELLOW Urine Appearance CLEAR (CLEAR) Urine pH 8.0 (4.5-7.5) Urine Specific [place] 1.012 (1.000-1.030) Urine Protein NEG (NEG) Urine Glucose (UA) NEG (NEG) Urine Ketones 1+ (NEG) Urine Occult Blood NEG (NEG) Urine Nitrite NEG (NEG) Urine Bilirubin NEG (NEG) Urine Urobilinogen NEG (NEG) Urine Leukocyte Esterase NEG (NEG) Anion Gap 11.0 mmol/L (3-11) Est Creatinine Clear Calc Drug Dose 120.4 ml/min Estimated GFR () 141.6 Estimated GFR (Non- 122.2 BUN/Creatinine Ratio 14.2 (10-20) Calcium Level 8.9 mg/dl (8.5-10.1) Total Bilirubin 0.6 mg/dl (0.2-1) Direct Bilirubin 0.2 mg/dl (0-0.2) Aspartate Amino Transf (AST/SGOT) 14 U/L (15-37) Alanine Aminotransferase (ALT/SGPT) 27 U/L (12-78) Alkaline Phosphatase 53 U/L (45-117) Total Protein 7.9 gm/dl (6.4-8.2) Albumin 4.7 gm/dl (3.4-5.0) Lipase 303 U/L (73-393) Thyroid Stimulating Hormone (TSH) 0.304 uIu/ml (0.300-4.500) Human Chorionic Gonadotropin, Qual NEG (NEG) Laboratory studies as stated above per my review. Medications Administered Medications (Trade) Dose Ordered Sig/Oli Route Start Time Stop Time Status Last Admin Dose Admin Sodium Chloride 1,000 ml @ 999 mls/hr Q1H1M STAT IV 04/11/17 15:25 04/11/17 16:25 DC 04/11/17 16:13 999 MLS/HR Sodium Chloride 1,000 ml @ 150 mls/hr Q6H40M ONCE IV 04/11/17 15:25 04/11/17 19:23 DC 04/11/17 16:23 150 MLS/HR Ondansetron HCl (Zofran Inj) 4 mg NOW STAT IV 04/11/17 15:25 04/11/17 15:27 DC 04/11/17 16:23 4 MG Lorazepam (Ativan Inj) 0.5 mg NOW STAT IV 04/11/17 15:27 04/11/17 15:29 DC 04/11/17 16:23 0.5 MG Potassium Chloride (Klor-Con M10) 40 meq NOW STAT PO 04/11/17 18:09 04/11/17 18:12 DC 04/11/17 18:26 40 MEQ ED Course 1517: Past medical records reviewed. The patient was evaluated in room C1B, and a complete history and physical examination were performed. 1525: Zofran Inj 4 mg IV, NSS 1000 ml @ 150 mls/hr IV, NSS 1000 ml @ 999 mls/hr IV. 1527: Lorazepam 0.5 mg IV. 1548: I reevaluated the patient. She is resting comfortably. 1622: I reevaluated the patient. She is just receiving her medications and hydration. She appears to be feeling better. 1732: I reevaluated the patient. She is feeling much better. 1809: Potassium Chloride 40 meq PO. 1821: I discussed the patient's case with Dr. Patton, [facility]. He says it is reasonable to start the patient on some medication and follow up next week as scheduled. 1833: Upon reevaluation, the patient is resting comfortably. I discussed the results and treatment plan with her. She verbalized agreement of the treatment plan. The patient was discharged home. Medical Decision Differentials include, but are not limited to; gastritis, dehydration, viral illness, infection, pancreatitis, , acute exacerbation of chronic pain. This patient comes in as described above. She has chronic abdominal pain that's been intermittent for years. She has been seen by GI in the past and been scoped a couple years ago she had a CAT scan earlier this year which was unremarkable. She's had an ultrasound as well. She seen yesterday had unremarkable workup. She is scheduled see GI next week. IV access established and she was hydrated with IV normal saline. She was given Zofran 4 mg IV . She tells me the Ativan helped her yesterday so she was given 0.5 mg IV. She has no peritonitis on her abdominal exam. She was hydrated and reassessed frequently. She was feeling significantly better. She has no white count or fever to suggest infection. She's no acute electrolyte or metabolic abnormalities. She has nothing to suggest liver, gallbladder, or pancreas disease. this has been going on chronically. She is scheduled to see GI. I talked to Dr. Patton he agreed with putting her on a proton pump inhibitor. She we discharged home she should have a mild diet. Return if : increasing pain or problems, worsening of symptoms, fever or chills, any new problems or concerns. The patient and her mother were happy with plan and she was discharged to home. Medication Reconcilliation Current Medication List: was personally reviewed by me Blood Pressure Screening Patient's blood pressure: Elevated blood pressure Blood pressure disposition: Elevated BP felt to be situational Consults Time Called: 1733 Consulting Physician: Dr. Patton, [facility] Returned Call: [phone] I discussed the patient's case with him. He says it is reasonable to start the patient on some medication and follow up next week as scheduled. Impression Primary Impression: Epigastric abdominal pain Scribe Attestation The scribe's documentation has been prepared under my direction and personally reviewed by me in its entirety. I confirm that the note above accurately reflects all work, treatment, procedures, and medical decision making performed by me. Departure Information Dispostion Home / Self-Care Prescriptions Pantoprazole (Protonix) 40 Mg Tab 40 MG PO DAILY, #30 TAB Prov: Christiano Valverde M.D. 04/11/17 Referrals Bonita Hill M.D. (MEDICAL) (PCP) Forms HOME CARE DOCUMENTATION FORM, IMPORTANT VISIT INFORMATION Patient Instructions My [facility] Additional Instructions Rest. Drink plenty of fluids. Mild diet. May use Zofran 4 mg every 6 hours if needed Start Protonix 40 mg once a day Return if: Worsening of symptoms, shortness of breath, fever or chills, any new problems or concerns Increase youR dietary potassium such as bananas Follow-up with your doctor tomorrow for recheck
[2017-04-11 16:42] LABS: PREG INTERNAL NEGATIVE QC NEG CLEAR BACKGROUND; PREG INTERNAL POSITIVE QC POS CONTROL LINE
[2017-04-11 16:54] LABS: BUN/CREATININE RATIO 14.2 (10-20); CALCIUM 8.9 mg/dl (8.5-10.1); CREATININE 0.67 mg/dl (0.60-1.20); POTASSIUM 2.9 mmol/L (3.5-5.1); THYROID STIMULATING HORMONE 0.304 uIu/ml (0.300-4.500)
[2017-04-11] MEDS ORDERED: POTASSIUM CHLORIDE 10 MEQ TABCR PO STA (18:09)
[2017-04-11] MEDS ORDERED: PANT40TA PO (18:27)
[2017-04-11 18:50] VITALS: BP 121/63; PULSE 68; O2SAT 98
== END 2017-04-11 18:51 | disposition home or self-care (01) ==
LOC: C.EDB 15:00 → C.EDC 18:51
DX: R10.13 Epigastric pain (principal); F32.9 Major depressive disorder, single episode, unspecified; G89.29 Other chronic pain; Z98.890 Other specified postprocedural states; Z80.9 Family history of malignant neoplasm, unspecified; Z82.49 Family history of ischemic heart disease and other diseases of the circulatory system; Z84.1 Family history of disorders of kidney and ureter

== ENCOUNTER 2017-05-14 12:48 | Emergency (ER) | payer OTHER ==
[~2017-05-14] VITALS: Ht 167.6 cm; Wt 56.5 kg
[~2017-05-14 12:48] MED LIST changes: -CEPH500C PO; +PANT40TA PO
[2017-05-14 13:08] VITALS: Ht 167.6 cm; Wt 56.5 kg
[2017-05-14] MEDS ORDERED: ONDANSETRON INJ 2 MG/ML 2 ML VIAL IV STA (13:40)
[2017-05-14] MEDS ORDERED: GI COCKTAIL PO ONE (13:45)
--- NOTE | 2017-05-14 13:48 | EMERGENCY ROOM VISIT NOTE ---
History First contact with patient: 13:14 Chief Complaint: VOMITING Stated Complaint: NAUSEA, VOMITING, PAIN, ABD LUMPS History of Present Illness The patient is a 27 year old female known to the Emergency department that is presenting to us with epigastric pain which originally started approx 3 days prior. She notes that this is not a new pain however has been ongoing since the of her first child in 2010. She notes that she had a very difficult and during the she would have similar bouts of abdominal pain. She typically never had the abdominal pain when she was not and would recur only with the pregnancies; she has had four in total with the most recent delivery being Apr 2016. She notes that since that she has been having epigastric pain that extends to the lower abdomen and has been intermittent since it did start. She notes that it never really goes away but intensity varies. It is sharp in nature. She has been unable to have a BM since the beginning of the week. She also notes N&V x 2 days. She notes poor appetite. Denies blood in stool or dysuria. This is similar pain to the previous episodes. She has been following with [facility] [place] abdominal pain and recently had an EGD which was WNL according to patient. She had a colonoscopy in 2010 after the pain initially started. She states that when she is sick her will criticize her but never has hurt her. We did discuss some baseline anxiety which she admits to having has never thought to address that with her PCP. She has a PCP but does not visit with him. Review of Systems A 10 point review of systems was completed and negative aside from above Past Medical/Surgical History Medical Problems: (1) Abdominal pain affecting (2) Chronic abdominal pain (3) Depression (4) spinal surgery (5) Spinal surgery (6) Vaginal bleeding (7) Vaginal delivery Family History FH: cancer Hypertension Kidney disease or stones Social History Smoking Status: Never Smoker Smokeless Tobacco Use: No Alcohol Use: none Drug Use: marijuana Marital Status: Housing Status: lives with family Occupation Status: unemployed Current/Historical Medications Scheduled Sulfa/Trimethoprim (Bactrim Ds 800MG/160MG), 1 TAB PO BID Physical Exam Vital Signs Date Time Temp Pulse Resp B/P (MAP) Pulse Ox O2 Delivery O2 Flow Rate FiO2 05/14/17 14:53 60 125/67 98 Room Air 05/14/17 13:08 76 20 175/99 98 Room Air Physical Exam General: ambulatory, crying and tearful sitting in the bed Skin: no rashes noted, no suspicious lesions, no areas of inflammations/ lacerations/ erythema noted CVS: S1/ S2 noted, RRR, no rubs/ murmurs noted, no cyanosis RVS: Clear throughout bilaterally, not in acute respiratory distress, no wheezing/ rales/ crackles noted ENT: TM bilat clear, no erythema/ injection/ ulcerations noted in the pharynx, no lymphadenopathy, no chancre sores noted Neck: inspection WNL, full ROM of neck, no bruits noted ABD: BSx4, diffuse tenderness to palpation but no rebound noted, no organomegaly , negative murphys, psoas, Rovsing, CVA tenderness MSK: inspection of all limbs WNL, motor and sensation intact in all limbs, no swelling/ pain on palpation of joints NVS: PERRL, EOMI, sensation intact in all extremities Lymph: No lymphadenopathy palpable Medical Decision & Procedures ER Provider Diagnostic Interpretation: [~ rep ct add3]] KUB HISTORY: Acute generalized abdominal pain with nausea and vomiting. abd pain COMPARISON: Acute abdominal series radiographs 04/10/2017. FINDINGS: The bowel gas pattern is non-obstructive. There is no organomegaly. No renal calculi. No ureteral calculi. Phleboliths are again seen within the pelvis. No pneumoperitoneum or pneumatosis. No fracture. IMPRESSION: 1. Nonobstructive bowel gas pattern without pneumoperitoneum. 2. No renal or ureteral stones. Laboratory Results 05/14/17 13:50 Red Blood Count 4.57, Mean Corpuscular Volume 87.7, Mean Corpuscular Hemoglobin 31.3, Mean Corpuscular Hemoglobin Concent 35.7, Mean Platelet Volume 9.9, Neutrophils (%) (Auto) 78.5, Lymphocytes (%) (Auto) 14.9, Monocytes (%) (Auto) 6.0, Eosinophils (%) (Auto) 0.2, Basophils (%) (Auto) 0.1, Neutrophils # (Auto) 7.06, Lymphocytes # (Auto) 1.34, Monocytes # (Auto) 0.54, Eosinophils # (Auto) 0.02, Basophils # (Auto) 0.01 05/14/17 13:50 Test 05/14/17 13:50 White Blood Count 9.00 K/uL (4.8-10.8) Red Blood Count 4.57 M/uL (4.2-5.4) Hemoglobin 14.3 g/dL (12.0-16.0) Hematocrit 40.1 % (37-47) Mean Corpuscular Volume 87.7 fL (80-100) Mean Corpuscular Hemoglobin 31.3 pg (25-34) Mean Corpuscular Hemoglobin Concent 35.7 g/dl (32-36) Platelet Count 186 K/uL (130-400) Mean Platelet Volume 9.9 fL (7.4-10.4) Neutrophils (%) (Auto) 78.5 % Lymphocytes (%) (Auto) 14.9 % Monocytes (%) (Auto) 6.0 % Eosinophils (%) (Auto) 0.2 % Basophils (%) (Auto) 0.1 % Neutrophils # (Auto) 7.06 K/uL (1.4-6.5) Lymphocytes # (Auto) 1.34 K/uL (1.2-3.4) Monocytes # (Auto) 0.54 K/uL (0.11-0.59) Eosinophils # (Auto) 0.02 K/uL (0-0.5) Basophils # (Auto) 0.01 K/uL (0-0.2) RDW Standard Deviation 41.8 fL (36.4-46.3) RDW Coefficient of Variation 13.0 % (11.5-14.5) Immature Granulocyte % (Auto) 0.3 % Immature Granulocyte # (Auto) 0.03 K/uL (0.00-0.02) Erythrocyte Sedimentation Rate 8 mm/hr (0-21) Prothrombin Time 11.0 SECONDS (9.0-12.0) Prothromb Time International Ratio 1.0 (0.9-1.1) Activated Partial Thromboplast Time 26.6 SECONDS (21.0-31.0) Partial Thromboplastin Ratio 1.0 Urine Color DK YELLOW Urine Appearance TURBID (CLEAR) Urine pH 7.5 (4.5-7.5) Urine Specific [place] 1.022 (1.000-1.030) Urine Protein NEG (NEG) Urine Glucose (UA) NEG (NEG) Urine Ketones TRACE (NEG) Urine Occult Blood NEG (NEG) Urine Nitrite NEG (NEG) Urine Bilirubin NEG (NEG) Urine Urobilinogen NEG (NEG) Urine Leukocyte Esterase TRACE (NEG) Urine WBC (Auto) 10-30 /hpf (0-5) Urine RBC (Auto) 0-4 /hpf (0-4) Urine Hyaline Casts (Auto) 1-5 /lpf (0-5) Urine Epithelial Cells (Auto) >30 /lpf (0-5) Urine Bacteria (Auto) 1+ (NEG) Urine Renal Epithelial Cells /lpf (0-5) Urine Pathogenic Casts /lpf (0) Urine Mucus PRESENT (NONE PRSENT) Urine Test NEG (NEG) Anion Gap 11.0 mmol/L (3-11) Est Creatinine Clear Calc Drug Dose 114.5 ml/min Estimated GFR () 141.6 Estimated GFR (Non- 122.2 BUN/Creatinine Ratio 15.7 (10-20) Calcium Level 8.8 mg/dl (8.5-10.1) Total Bilirubin 0.5 mg/dl (0.2-1) Aspartate Amino Transf (AST/SGOT) 14 U/L (15-37) Alanine Aminotransferase (ALT/SGPT) 19 U/L (12-78) Alkaline Phosphatase 52 U/L (45-117) Troponin I < 0.015 ng/ml (0-0.045) Total Protein 7.7 gm/dl (6.4-8.2) Albumin 4.5 gm/dl (3.4-5.0) Globulin 3.2 gm/dl (2.5-4.0) Albumin/Globulin Ratio 1.4 (0.9-2) Lipase 83 U/L (73-393) Medications Administered Medications (Trade) Dose Ordered Sig/Oli Route Start Time Stop Time Status Last Admin Dose Admin Ondansetron HCl (Zofran Inj) 4 mg NOW STAT IV 05/14/17 13:40 05/14/17 13:48 DC 05/14/17 14:09 4 MG Al Hydroxide/Mg Hydroxide/ Lidocaine HCl/ Barcode NOW STAT PO 05/14/17 14:04 05/14/17 14:05 DC 05/14/17 14:04 30 ML Sodium Chloride 1,000 ml @ 999 mls/hr Q1H1M ONCE IV 05/14/17 14:15 05/14/17 15:15 DC 05/14/17 14:10 999 MLS/HR Ceftriaxone Sodium 1 gm/ Dextrose 50 ml @ 100 mls/hr ONE STAT IV 05/14/17 14:46 05/14/17 15:15 DC 05/14/17 15:00 100 MLS/HR Potassium Chloride (Klor-Con M10) 40 meq NOW STAT PO 05/14/17 14:40 05/14/17 14:41 DC 05/14/17 14:52 40 MEQ ED Course 1317 patient was evaluated and assessed by resident; appropriate w/u was ordered 1340 4 mg of Zofran, NSS @ 999/h x 1 and GI cocktail was ordered 1446: Rocephin 1G ordered, 40 meq of KCL PO 1530: Reevaluation of the patient revealed improvement of symptoms, discussed findings and patient was agreeable to discharge home Medical Decision Differential diagnosis: Etiologies such as appendicitis, diverticulitis, PUD, biliary pathology, UTI, pancreatitis, obstruction, mesenteric ischemia, aortic pathology, infections, inflammatory bowel disease, renal colic, as well as others were entertained. This is a 27 yo f that is presented to the ED frequently for similar abdominal pain and is currently being follow by gastroenterology. CBC was not reflective of an infection as there was no leukocytosis. ESR was normal making Crohn's and UC unlikely. The patient was found to be hypokalemic with ketones in the urine reflective of dehydration and her poor appetite. She received a bolus of NSS in the ED and had some improvement with symptoms as well as resolved nausea.UA was abnormal and was suspicious for a UTI however Nitrates were negative. Was treated with one dose of Rocephin in house with plan to continue therapy x 3 days on Bactrim. We discussed in detail about the importance in following up with her PCP not only to discuss the recurrent abdominal pain however to also discuss her anxiety as this very likely is playing a part in the patient's abdominal pain. [place] Drug Monitoring Program Search Results: patient reviewed within database, no issues identified Medication Reconcilliation Current Medication List: was personally reviewed by me Blood Pressure Screening Patient's blood pressure: Elevated blood pressure Blood pressure disposition: Elevated BP felt to be situational, Referred to PCP Impression Primary Impression: UTI (lower urinary tract infection) Additional Impressions: Hypokalemia, gastrointestinal losses Dehydration with hyponatremia Departure Information Dispostion Home / Self-Care Condition GOOD Prescriptions Sulfa/Trimethoprim (Bactrim Ds 800MG/160MG) Tab 1 TAB PO BID for 3 Days, #6 TAB Prov: Holley Mortensen MD 05/14/17 Referrals Bonita Hill M.D. (MEDICAL) (PCP) Patient Instructions [facility] Problem Qualifiers
[2017-05-14] MEDS ORDERED: ALUMINUM/MAGNESIUM SUSP 18 ML, LIDOCAINE HCL 2% VISCOUS SOLN 6 ML, BARCODE IDENTIFIER 1 EA PO STA ×2 (14:04)
[2017-05-14] MEDS ORDERED: LIDOCAINE HCL 2% VISC SOLN 20 ML UDC ONE (14:06)
[2017-05-14] MEDS ORDERED: ALUMINUM/MAGNESIUM SUSP 30 ML UDC ONE (14:06)
[2017-05-14 14:11] LABS: BASO % 0.1 %; BASO ABS # 0.01 K/uL (0-0.2); COMPLETE YES; EOS % 0.2 %; HEMATOCRIT 40.1 % (37-47); IG% 0.3 %; LYMPH % 14.9 %; LYMPH ABS # 1.34 K/uL (1.2-3.4); MEAN CELL VOLUME 87.7 fL (80-100); MEAN CORPUSCULAR HEMOGLOBIN 31.3 pg (25-34); MEAN CORPUSCULAR HGB CONC 35.7 g/dl (32-36); MEAN PLATELET VOLUME 9.9 fL (7.4-10.4); NEUT % 78.5 %; PLATELET COUNT 186 K/uL (130-400); RED BLOOD COUNT 4.57 M/uL (4.2-5.4)
[2017-05-14 14:15] LABS: URINE APPEARANCE TURBID (CLEAR); URINE BILIRUBIN NEG (NEG); URINE COLOR DK YELLOW; URINE EPITHELIAL CELL AUTO >30 /lpf (0-5); URINE NITRITE NEG (NEG); URINE PH 7.5 (4.5-7.5); URINE SPECIFIC GRAVITY 1.022 (1.000-1.030); UROBILINOGEN NEG (NEG); ZZUR CULT IF INDIC CLEAN CATCH YES
[2017-05-14] MEDS ORDERED: SODIUM CHLORIDE 0.9% 1000ML 1,000 ML IV ONE (14:15)
[2017-05-14 14:24] LABS: MANUAL MICROSCOPIC REQUIRED? NO; REVIEW REQ? YES; SULFASALICYLIC ACID NEG (NEG)
[2017-05-14 14:26] LABS: URINE MUCUS PRESENT (NONE PRSENT)
[2017-05-14 14:33] LABS: BLOOD UREA NITROGEN 11 mg/dl (7-18); BUN/CREATININE RATIO 15.7 (10-20); CALCIUM 8.8 mg/dl (8.5-10.1); CARBON DIOXIDE 23 mmol/L (21-32); CHLORIDE 101 mmol/L (98-107); CREATININE 0.67 mg/dl (0.60-1.20); GLUCOSE 90 mg/dl (70-99); POTASSIUM 3.1 mmol/L (3.5-5.1); SODIUM 135 mmol/L (136-145)
[2017-05-14 14:38] LABS: ALB/GLOB RATIO 1.4 (0.9-2); ALKALINE PHOSPHATASE 52 U/L (45-117); ALT/SGPT 19 U/L (12-78); AST/SGOT 14 U/L (15-37)
[2017-05-14] MEDS ORDERED: POTASSIUM CHLORIDE 10 MEQ TABCR PO STA (14:40)
[2017-05-14] MEDS ORDERED: CEFTRIAXONE SOD INJ 1 GM in DEXTROSE 5% ADD-VANTAGE 50ML 50 ML IV STA (14:46)
--- NOTE | 2017-05-14 14:47 | DIAGNOSTIC IMAGING REPORT ---
KUB HISTORY: Acute generalized abdominal pain with nausea and vomiting. abd pain COMPARISON: Acute abdominal series radiographs 04/10/2017. FINDINGS: The bowel gas pattern is non-obstructive. There is no organomegaly. No renal calculi. No ureteral calculi. Phleboliths are again seen within the pelvis. No pneumoperitoneum or pneumatosis. No fracture. IMPRESSION: 1. Nonobstructive bowel gas pattern without pneumoperitoneum. 2. No renal or ureteral stones. Electronically signed by: Yoshi Hubbard M.D. 05/14/2017 2:46 PM Dictated Date/Time: 05/14/2017 2:44 PM
--- NOTE | 2017-05-14 14:55 | EMERGENCY ROOM VISIT NOTE ---
ED Visit Note First contact with patient: 13:14 Resident Physician Supervision Note: I was present with Dr. Mortensen during the history and exam. I discussed the case with the resident and agree with the findings and plan as documented in the note. Documented By: Kev Marie
[2017-05-14] MEDS ORDERED: SULF800T23 PO (15:44)
[2017-05-14 16:24] VITALS: BP 126/78; PULSE 63; O2SAT 98
== END 2017-05-14 16:25 | disposition home or self-care (01) ==
LOC: C.EDB 12:49
DX: N39.0 Urinary tract infection, site not specified (principal); E87.6 Hypokalemia; E86.0 Dehydration; E87.1 Hypo-osmolality and hyponatremia; R10.9 Unspecified abdominal pain; G89.29 Other chronic pain; F32.9 Major depressive disorder, single episode, unspecified; F12.90 Cannabis use, unspecified, uncomplicated; Z82.49 Family history of ischemic heart disease and other diseases of the circulatory system; Z84.1 Family history of disorders of kidney and ureter

== ENCOUNTER 2017-10-15 16:04 | Emergency (ER) | payer OTHER ==
[~2017-10-15] VITALS: Ht 170.2 cm; Wt 59.1 kg
[2017-10-15 16:31] VITALS: Ht 170.2 cm; Wt 59.1 kg
[2017-10-15] MEDS ORDERED: MoRPHine SULFATE 10 MG/ML CARP/VIAL IV STA (17:50)
[2017-10-15] MEDS ORDERED: ONDANSETRON INJ 2 MG/ML 2 ML VIAL IV STA ×2 (17:50→20:56)
[2017-10-15] MEDS ORDERED: SODIUM CHLORIDE 0.9% 1000ML 1,000 ML IV STA (17:50)
[2017-10-15 18:00] LABS: BASO % 0.1 %; BASO ABS # 0.01 K/uL (0-0.2); HEMOGLOBIN 13.8 g/dL (12.0-16.0); IG# 0.02 K/uL (0.00-0.02); LYMPH % 6.9 %; LYMPH ABS # 0.84 K/uL (1.2-3.4); MEAN CELL VOLUME 87.2 fL (80-100); MEAN CORPUSCULAR HEMOGLOBIN 30.9 pg (25-34); MEAN CORPUSCULAR HGB CONC 35.4 g/dl (32-36); MEAN PLATELET VOLUME 9.4 fL (7.4-10.4); MONO % 0.9 %; MONO ABS # 0.11 K/uL (0.11-0.59); NEUT % 91.9 %; NEUT ABS # 11.18 K/uL (1.4-6.5); PLATELET COUNT 243 K/uL (130-400); RED CELL DISTRIBUTION WIDTH CV 12.9 % (11.5-14.5); RED CELL DISTRIBUTION WIDTH SD 41.5 fL (36.4-46.3); WHITE BLOOD COUNT 12.16 K/uL (4.8-10.8)
[2017-10-15] MEDS ORDERED: OPTIRAY 320 IV PRN (18:00)
[2017-10-15 18:13] LABS: CALCIUM 9.2 mg/dl (8.5-10.1); CREATININE 0.82 mg/dl (0.60-1.20); POTASSIUM 3.4 mmol/L (3.5-5.1)
[2017-10-15 18:17] LABS: PHOSPHORUS 3.1 mg/dl (2.5-4.9); TOTAL PROTEIN 8.9 gm/dl (6.4-8.2)
--- NOTE | 2017-10-15 19:19 | DIAGNOSTIC IMAGING REPORT ---
ABDOMEN AND PELVIS CT WITH IV CONTRAST CT DOSE: 279.85 mGy.cm HISTORY: Right lower quadrant tenderness to palpation. TECHNIQUE: Multiaxial CT images of the abdomen and pelvis were performed following the use of intravenous contrast. A dose lowering technique was utilized adhering to the principles of ALARA. COMPARISON STUDY: Abdomen and pelvis CT 10/19/2016. FINDINGS: The lung bases are clear. No pneumoperitoneum. No pneumatosis. Sclerosis at the bilateral sacroiliac joints. This could be due to a sacroiliitis. This remains unchanged. The liver, spleen, adrenal glands, pancreas, and gallbladder are unremarkable. No retroperitoneal lymphadenopathy. The kidneys enhance normally. No hydronephrosis. The bladder, uterus, and ovaries are unremarkable. A tampon is identified within the vagina. Trace pelvic free fluid. This is likely physiologic. The visualized appendix is unremarkable. IMPRESSION: 1. Normal appendix. 2. No bowel wall thickening or obstruction. 3. Trace pelvic free fluid. This is likely physiologic. 4. Sclerosis at the bilateral sacroiliac joints. This remains unchanged and could represent a mild sacroiliitis. Electronically signed by: Gurdeep Foster M.D. 10/15/2017 7:18 PM Dictated Date/Time: 10/15/2017 7:11 PM
[2017-10-15] MEDS ORDERED: GI COCKTAIL PO STA (19:42)
[2017-10-15] MEDS ORDERED: METOCLOPRAMIDE HCL INJ 5 MG/ML 2 ML VIAL IV. STA (19:42)
[2017-10-15] MEDS ORDERED: FAMOTIDINE 20 MG TAB PO ONE (19:45)
[2017-10-15] MEDS ORDERED: ALUMINUM/MAGNESIUM SUSP 30 ML UDC ONE (19:46)
[2017-10-15] MEDS ORDERED: LIDOCAINE HCL 2% VISC SOLN 20 ML UDC ONE (19:46)
[2017-10-15] MEDS ORDERED: HALOPERIDOL LACTATE 5 MG/ML 1 ML VIAL IV STA (20:09)
[2017-10-15] MEDS ORDERED: TRAM-453 PO (20:21)
[2017-10-15] MEDS ORDERED: DICY10CA55 PO (20:21)
--- NOTE | 2017-10-15 20:24 | EMERGENCY ROOM VISIT NOTE ---
History Report prepared by Tao: Shawn Spangler Under the Supervision of: Dr. Vijay Burgess M.D. First contact with patient: 17:23 Chief Complaint: ABDOMINAL PAIN Stated Complaint: ABD PAIN Nursing Triage Summary: pt reports started with RLQ abdominal pain today , + NV History of Present Illness The patient is a 27 year old white female with a past medical history of depression, chronic abdominal pain, spinal surgery who presents to the ED with a cc of constant generalized abdominal pain beginning this morning. Positive nausea, vomiting. She feels that there may be a "lump" on the left side. Describes pain as "sharp", and "burning". Patient reports similar pain previously when . Negative urinary symptoms. Notes that her kids are currently sick. No recent travel. No recent antibiotic use. Patient has not defecated since yesterday or the day before. She has been able to pass small amounts of gas. EMR reviewed. Patient had EGD last year which was normal. Source of History: patient Onset: This morning Position: abdomen (generalized) Quality: burning, sharp Timing: constant Associated Symptoms: + nausea, + vomiting, No urinary symptoms Review of Systems See HPI for pertinent positives and negatives. A total of ten systems were reviewed and were otherwise negative. Past Medical & Surgical Medical Problems: (1) Abdominal pain affecting (2) Chronic abdominal pain (3) Depression (4) spinal surgery (5) Spinal surgery (6) Vaginal bleeding (7) Vaginal delivery Family History FH: cancer Hypertension Kidney disease or stones Social History Smoking Status: Never Smoker Alcohol Use: none Drug Use: marijuana Marital Status: Housing Status: lives with family Occupation Status: unemployed Current/Historical Medications Scheduled Dicyclomine Hcl (Bentyl), 10 MG PO TID Tramadol Hcl (Ultram), 25 MG PO Q8H Allergies Coded Allergies: No Known Allergies (Unverified , 05/14/17) Physical Exam Vital Signs Date Time Temp Pulse Resp B/P (MAP) Pulse Ox O2 Delivery O2 Flow Rate FiO2 10/15/17 21:57 37.6 70 18 146/98 100 10/15/17 20:59 68 20 146/98 100 Room Air 10/15/17 20:13 76 20 131/78 100 Room Air 10/15/17 19:25 63 10/15/17 19:10 68 19 98/66 100 Room Air 10/15/17 17:40 104 24 138/80 100 Room Air 10/15/17 16:31 37.6 72 20 136/86 99 Room Air Physical Exam GENERAL: Awake, alert, uncomfortable-appearing, in mild distress. Appears to be in pain. HENT: Normocephalic, atraumatic. EYES: Normal conjunctiva. Sclera non-icteric. NECK: Supple. No nuchal rigidity. FROM. RESPIRATORY: CTAB, no rhonchi, wheezing, crackles CARDIAC: RRR, no MRG ABDOMEN: Soft, BS+. Diffuse abdominal TTP, worse in the RLQ. Positive obturators. Negative psoas. MSK: No chest wall TTP, no LE edema NEURO: GCS 15, CN 2-12 intact, moves all 4s on command SKIN: No rash or jaundice noted. Medical Decision & Procedures ER Provider Diagnostic Interpretation: Radiology results as stated below per my review and radiologist interpretation: ABDOMEN AND PELVIS CT WITH IV CONTRAST FINDINGS: The lung bases are clear. No pneumoperitoneum. No pneumatosis. Sclerosis at the bilateral sacroiliac joints. This could be due to a sacroiliitis. This remains unchanged. The liver, spleen, adrenal glands, pancreas, and gallbladder are unremarkable. No retroperitoneal lymphadenopathy. The kidneys enhance normally. No hydronephrosis. The bladder, uterus, and ovaries are unremarkable. A tampon is identified within the vagina. Trace pelvic free fluid. This is likely physiologic. The visualized appendix is unremarkable. IMPRESSION: 1. Normal appendix. 2. No bowel wall thickening or obstruction. 3. Trace pelvic free fluid. This is likely physiologic. 4. Sclerosis at the bilateral sacroiliac joints. This remains unchanged and could represent a mild sacroiliitis. Electronically signed by: Gurdeep Foster M.D. 10/15/2017 7:18 PM Laboratory Results 10/15/17 17:33 Red Blood Count 4.47, Mean Corpuscular Volume 87.2, Mean Corpuscular Hemoglobin 30.9, Mean Corpuscular Hemoglobin Concent 35.4, Mean Platelet Volume 9.4, Neutrophils (%) (Auto) 91.9, Lymphocytes (%) (Auto) 6.9, Monocytes (%) (Auto) 0.9, Eosinophils (%) (Auto) 0.0, Basophils (%) (Auto) 0.1, Neutrophils # (Auto) 11.18, Lymphocytes # (Auto) 0.84, Monocytes # (Auto) 0.11, Eosinophils # (Auto) 0.00, Basophils # (Auto) 0.01 10/15/17 17:33 Test 10/15/17 17:33 10/15/17 19:11 White Blood Count 12.16 K/uL (4.8-10.8) Red Blood Count 4.47 M/uL (4.2-5.4) Hemoglobin 13.8 g/dL (12.0-16.0) Hematocrit 39.0 % (37-47) Mean Corpuscular Volume 87.2 fL (80-100) Mean Corpuscular Hemoglobin 30.9 pg (25-34) Mean Corpuscular Hemoglobin Concent 35.4 g/dl (32-36) Platelet Count 243 K/uL (130-400) Mean Platelet Volume 9.4 fL (7.4-10.4) Neutrophils (%) (Auto) 91.9 % Lymphocytes (%) (Auto) 6.9 % Monocytes (%) (Auto) 0.9 % Eosinophils (%) (Auto) 0.0 % Basophils (%) (Auto) 0.1 % Neutrophils # (Auto) 11.18 K/uL (1.4-6.5) Lymphocytes # (Auto) 0.84 K/uL (1.2-3.4) Monocytes # (Auto) 0.11 K/uL (0.11-0.59) Eosinophils # (Auto) 0.00 K/uL (0-0.5) Basophils # (Auto) 0.01 K/uL (0-0.2) RDW Standard Deviation 41.5 fL (36.4-46.3) RDW Coefficient of Variation 12.9 % (11.5-14.5) Immature Granulocyte % (Auto) 0.2 % Immature Granulocyte # (Auto) 0.02 K/uL (0.00-0.02) Anion Gap 11.0 mmol/L (3-11) Est Creatinine Clear Calc Drug Dose 97.8 ml/min Estimated GFR () 115.3 Estimated GFR (Non- 99.5 BUN/Creatinine Ratio 22.9 (10-20) Calcium Level 9.2 mg/dl (8.5-10.1) Phosphorus Level 3.1 mg/dl (2.5-4.9) Magnesium Level 1.9 mg/dl (1.8-2.4) Total Bilirubin 0.4 mg/dl (0.2-1) Direct Bilirubin 0.1 mg/dl (0-0.2) Aspartate Amino Transf (AST/SGOT) 24 U/L (15-37) Alanine Aminotransferase (ALT/SGPT) 32 U/L (12-78) Alkaline Phosphatase 77 U/L (45-117) Total Protein 8.9 gm/dl (6.4-8.2) Albumin 5.0 gm/dl (3.4-5.0) Lipase 66 U/L (73-393) Urine Color YELLOW Urine Appearance CLEAR (CLEAR) Urine pH 6.5 (4.5-7.5) Urine Specific [place] 1.028 (1.000-1.030) Urine Protein 1+ (NEG) Urine Glucose (UA) NEG (NEG) Urine Ketones 2+ (NEG) Urine Occult Blood NEG (NEG) Urine Nitrite NEG (NEG) Urine Bilirubin NEG (NEG) Urine Urobilinogen NEG (NEG) Urine Leukocyte Esterase NEG (NEG) Urine WBC (Auto) 1-5 /hpf (0-5) Urine RBC (Auto) 0-4 /hpf (0-4) Urine Hyaline Casts (Auto) 1-5 /lpf (0-5) Urine Epithelial Cells (Auto) >30 /lpf (0-5) Urine Bacteria (Auto) NEG (NEG) Urine Renal Epithelial Cells /lpf (0-5) Urine Test NEG (NEG) Urine Opiates Screen POS (NEG) Urine Methadone, Qualitative NEG (NEG) Urine Barbiturates NEG (NEG) Urine Phencyclidine (PCP) Level NEG (NEG) Ur Amphetamine/Methamphetamine NEG (NEG) MDMA (Ecstasy) Screen NEG (NEG) Urine Benzodiazepines Screen NEG (NEG) Urine Cocaine Metabolite NEG (NEG) Urine Marijuana (THC) POS (NEG) Laboratory results reviewed by me Medications Administered Medications (Trade) Dose Ordered Sig/Oli Route Start Time Stop Time Status Last Admin Dose Admin Morphine Sulfate (MoRPHine SULFATE INJ) 8 mg NOW STAT IV 10/15/17 17:50 10/15/17 17:51 DC 10/15/17 17:50 8 MG Ondansetron HCl (Zofran Inj) 4 mg NOW STAT IV 10/15/17 17:50 10/15/17 17:51 DC 10/15/17 17:50 4 MG Sodium Chloride 1,000 ml @ 999 mls/hr Q1H1M STAT IV 10/15/17 17:50 10/15/17 18:50 DC 10/15/17 17:50 999 MLS/HR Metoclopramide HCl (Reglan Inj) 10 mg NOW STAT IV. 10/15/17 19:42 10/15/17 19:44 DC 10/15/17 19:42 10 MG Famotidine (Pepcid Tab) 20 mg NOW ONCE PO 10/15/17 19:45 10/15/17 19:46 DC 10/15/17 19:45 20 MG Miscellaneous Medication (Gi Cocktail) 24 ml ONE STAT PO 10/15/17 19:42 10/15/17 19:44 DC 10/15/17 19:42 24 ML Haloperidol Lactate (Haldol Inj) 5 mg NOW STAT IV 10/15/17 20:09 10/15/17 20:11 DC 10/15/17 20:09 5 MG Morphine Sulfate (MoRPHine SULFATE INJ) 4 mg NOW STAT IV 10/15/17 20:56 10/15/17 20:58 DC 10/15/17 20:56 4 MG Ondansetron HCl (Zofran Inj) 4 mg NOW STAT IV 10/15/17 20:56 10/15/17 20:58 DC 10/15/17 20:56 4 MG ED Course 1742: The patient was evaluated in room C4. A complete history and physical exam was performed. 0: I reassessed the patient. I updated her on her test results. 2030: I reevaluated the patient. Discussed results and discharge instructions: she verbalized understanding and agreement. The patient is ready for discharge. Medical Decision The patient is a 27 year old white female with a past medical history of depression, chronic abdominal pain, spinal surgery who presents to the ED with a cc of constant generalized abdominal pain beginning this morning. Differential diagnosis: Etiologies such as appendicitis, diverticulitis, PUD, biliary pathology, UTI, pancreatitis, obstruction, mesenteric ischemia, aortic pathology, infections, inflammatory bowel disease, renal colic, as well as others were entertained. Seen and evaluated at the bedside. Patient w/ long history of expansive work up for ab pain. Generalized and RLQ. Reviewed prior imaging. patient has had EGDs as well. Patient blood work, UA, UPT, CT A/P. All fairly unremarkable. THC is positive. Possible hyperemesis related to THC. Patient feeling improved. However , then had another bout of discomfort. Additional meds given. Reviewed most recent transvaginal US and no evidence of cysts, masses, fibroids, or enlarged ovaries. Do not believe this is torsion given fairly unremarkable prior exam and history of abdominal pain w/o true diagnosis. Patient feeling improved upon reassessment again. Discussed findings. Deemed suitable for outpatient f/u and trx. D/c'ed to home. Medication Reconcilliation Current Medication List: was personally reviewed by me Blood Pressure Screening Patient's blood pressure: Normal blood pressure Blood pressure disposition: Did not require urgent referral Impression Primary Impression: Abdominal pain Additional Impression: Hypokalemia Scribe Attestation The scribe's documentation has been prepared under my direction and personally reviewed by me in its entirety. I confirm that the note above accurately reflects all work, treatment, procedures, and medical decision making performed by me. Departure Information Dispostion Home / Self-Care Prescriptions Tramadol Hcl (ULTRAM) 50 Mg Tab 25 MG PO Q8H, #12 TAB PRN PAIN Prov: Vijay Burgess M.D. 10/15/17 Dicyclomine Hcl (BENTYL) 10 Mg Cap 10 MG PO TID for 7 Days, #21 CAP Prov: Vijay Burgess M.D. 10/15/17 Referrals Bonita Hill M.D. (MEDICAL) (PCP) Patient Instructions Abdominal Pain, My [facility] Additional Instructions Please return to the emergency department if you have worsening or recurrent symptoms not amenable to at-home treatment. Please call for a follow-up appointment with her primary care physician. Please take your medications as prescribed. If you have other concerns and/or complaints please feel free to also call your primary care physician's office or return the ED for further evaluation, management, and treatment. You were found to have an elevated blood pressure today (>120 sytolic or >90 diastolic). Per medicare guidelines, you need to follow up with this blood pressure screening with your Primary Care Physician (PCP). For a new PCP call [phone]. You received narcotic or benzodiazepene medication while in the emergency room today. This is an addictive medication that may cause drowziness as well as constipation. Do not drive, operate heavy machinery, or drink alcohol under the influence of this medication. You may take 600 mg Ibuprofen every 6 hours as needed for pain with food for no more than 2 consecutive days. You may take tylenol 1000 mg every 6 hours as needed for pain. You may take motrin and tylenol separately or at the same time. Take your medications as prescribed. If taking an antibiotic consider taking a probiotic and/or eating yogurt, but at the least, please take with food as it can cause upset stomach. If culture results are not available at discharge, if they are positive for concern of infection, you will be informed of the results as soon as they are available. If you were seen between 11pm and 7AM all radiology reads will be re-read by our in house staff. If any major discrepancies are discovered, you will be notified. You have been examined and treated today on an emergency basis only. This is not a substitute for, or an effort to provide, complete comprehensive medical care. It is impossible to recognize and treat all injuries or illnesses in a single emergency department visit. It is therefore important that you follow up closely with [facility], your PCP, and/or your specialist(s). Call as soon as possible for an appointment. Thank you for your time and consideration. I look forward to speaking with you again soon. Please don't hesitate to call us if you have any questions. Problem Qualifiers Primary Impression: Abdominal pain Abdominal location: generalized Qualified Codes: R10.84 - Generalized abdominal pain
[2017-10-15] MEDS ORDERED: MoRPHine SULFATE 4 MG/ML 1 ML CARP\\VIAL IV STA (20:56)
[2017-10-15 21:57] VITALS: BP 146/98; PULSE 70; TEMP 37.6; O2SAT 100
== END 2017-10-15 21:58 | disposition home or self-care (01) ==
LOC: C.EDB 16:06 → C.EDC 21:58
DX: R10.84 Generalized abdominal pain (principal); E87.6 Hypokalemia; R11.2 Nausea with vomiting, unspecified